=== PATIENT | male | born 1995 | race American Indian/Alaskan Native ===

== ENCOUNTER 2017-01-05 14:34 | Inpatient (IN) | payer MEDICAID ==
[2017-01-05 16:17] LABS: Basophils % (Auto) 0.3 % (0.0-1.8); Eosinophils % (Auto) 9.5 % (0.0-4.3); Hematocrit 41.8 % (35.5-45.6); Hemoglobin 14.1 gm/dl (11.8-15.2); Mean Corpuscular HGB Conc 34 % (32-34); Mean Corpuscular Hemoglobin 29 pg (28-32); Mean Corpuscular Volume 86 fl (84-94); Platelet Count 243 K/mm3 (140-440); Red Blood Count 4.88 M/mm3 (3.65-5.03); Red Cell Distribution Width 15.8 % (13.2-15.2); White Blood Count 9.5 K/mm3 (4.5-11.0)
[2017-01-05 16:25] LABS: Alanine Aminotransferase 75 units/L (7-56); Albumin 3.8 g/dL (3.9-5); Albumin/Globulin Ratio 1.2 %; Alkaline Phosphatase 80 units/L (35-129); Anion Gap 16 mmol/L; Blood Urea Nitrogen 5 mg/dL (9-20); Calcium 9.5 mg/dL (8.4-10.2); Carbon Dioxide 22 mmol/L (22-30); Chloride 105.9 mmol/L (98-107); Glucose 127 mg/dL (75-100); Potassium 4.1 mmol/L (3.6-5.0); Sodium 140 mmol/L (137-145)
--- NOTE | 2017-01-05 21:31 | XRay Report ---
FINAL REPORT EXAM: XR CHEST ROUTINE 2V HISTORY: ams ? pna TECHNIQUE: Two view chest PA and lateral PRIORS: None. FINDINGS: Cardiac and mediastinal contours are unremarkable. No focal pulmonary infiltrate is identified. No pleural fluid collection seen. Pulmonary vasculature is unremarkable. IMPRESSION: Negative two-view chest
--- NOTE | 2017-01-05 21:43 | Cat Scan Report ---
FINAL REPORT EXAM: CT HEAD/BRAIN WO CON HISTORY: ams TECHNIQUE: CT head without contrast PRIORS: None. FINDINGS: No acute intra-axial or extra-axial hemorrhage is identified. There is no evidence of midline shift or mass effect. The ventricles and sulci are within normal limits. Kat-white matter differentiation is intact. No acute parenchymal abnormalities seen. Bony calvarium is grossly intact. Visualized portions of the mastoids and paranasal sinuses are unremarkable. IMPRESSION: Negative CT head
--- NOTE | 2017-01-05 22:55 | Emergency Department Report ---
ED Psych HPI - General Chief Complaint: Altered Mental Status Stated Complaint: AMS Time Seen by Provider: 01/05/17 22:50 Source: family (caregivers) Mode of arrival: Wheelchair Limitations: Language Barrier (mute) - History of Present Illness MD Complaint: other (lethargy sedation) -: Gradual Associated Psychiatric Symptoms: other (mr kym montes) History of same: No Quality: changing over time, getting worse Improves With: none Worsens With: none - Related Data Home Medications Medication Instructions Recorded Confirmed Last Taken Unobtainable 01/05/17 01/05/17 Unknown Allergies Allergy/AdvReac Type Severity Reaction Status Date / Time No Known Allergies Allergy Unverified 01/05/17 15:26 ED Review of Systems ROS: Stated complaint: AMS Other details as noted in HPI Comment: All other systems reviewed and negative Constitutional: no symptoms reported Eyes: as per HPI ENT: as per HPI Respiratory: no symptoms reported Cardiovascular: as per HPI Endocrine: no symptoms reported Gastrointestinal: as per HPI Genitourinary: as per HPI Musculoskeletal: as per HPI Skin: as per HPI Neurological: as per HPI, other (lethargy). denies: headache, weakness, numbness, paresthesias, confusion, abnormal gait, vertigo Psychiatric: as per HPI, other (autism, mr, jyoti). denies: anxiety, depression , auditory hallucinations, visual hallucinations, homicidal thoughts Hematological/Lymphatic: as per HPI ED Past Medical Hx - Past Medical History Previous Medical History?: Yes Hx Hypertension: No Hx CVA: No Hx Heart Attack/AMI: No Hx Congestive Heart Failure: No Hx Diabetes: No Hx Deep Vein Thrombosis: No Hx Pulmonary Embolism: No Hx GERD: No Hx Liver Disease: No Hx Renal Disease: No Hx of Cancer: No Hx Sickle Cell Disease: No Hx Arthritis: No Hx Headaches / Migraines: No Hx Seizures: No Hx Kidney Stones: No Hx Psychiatric Treatment: Yes Hx Asthma: No Hx COPD: No Hx Tuberculosis: No Hx Dementia: No Hx HIV: No Additional medical history: mute. autistic. bipolar. behavioral distrubance. obese. lives in [facility]; mom and dad are alive - Surgical History Past Surgical History?: No Additional Surgical History: UNKNOWN - Social History Smoking Status: Never Smoker Substance Use Type: None - Medications Home Medications: Home Medications Medication Instructions Recorded Confirmed Last Taken Type Unobtainable 01/05/17 01/05/17 Unknown History ED Physical Exam - General Limitations: Altered Mental Status, Other General appearance: in no apparent distress, lethargic, obese, other (ambulates but if unstimulated will go to sleep) - Head Head exam: Present: atraumatic, other (no hx fall or trauma) - Eye Eye exam: Present: normal appearance, PERRL (4 b bilateral ) - ENT ENT exam: Present: normal exam, mucous membranes moist - Neck Neck exam: Present: normal inspection. Absent: tenderness, meningismus - Respiratory Respiratory exam: Present: normal lung sounds bilaterally (limted by body habitus). Absent: respiratory distress, wheezes, rales, rhonchi, stridor - Cardiovascular Cardiovascular Exam: Present: regular rate, normal rhythm. Absent: bradycardia , tachycardia, irregular rhythm - GI/Abdominal GI/Abdominal exam: Present: soft (obese) - Rectal Rectal exam: Present: deferred - Extremities Exam Extremities exam: Present: normal inspection, full ROM, tenderness - Back Exam Back exam: Present: normal inspection, full ROM. Absent: tenderness, CVA tenderness (R), CVA tenderness (L) - Neurological Exam Neurological exam: Present: alert, altered, CN II-XII intact, normal gait. Absent: reflexes normal (inc ) - Psychiatric Psychiatric exam: Present: flat affect, other (lethargic but will ambulate when stimulated). Absent: normal affect, normal mood, depressed, agitated, anxious, manic, homicidal ideation - Expanded Psychiatric Exam Expanded Focused psych exam: Present: psychomotor agitation (rigid as if prk appearing), mute, other (diff to assess given baseline pathology; wo meds pt is aggressive per [facility] staff). Absent: pressured speech, internal stimuli, echolalia, delusional, paranoid, catatonic, perseverating, euphoric, restlessness, flight of ideas, loose associations - Skin Skin exam: Present: warm, dry, intact, normal color. Absent: rash ED Course Vital Signs 01/05/17 01/05/17 15:18 23:50 Temperature 97.8 F Pulse Rate 79 62 Respiratory 18 16 Rate Blood Pressure 146/76 Blood Pressure 113/71 [Left] O2 Sat by Pulse 100 96 Oximetry - Reevaluation(s) Reevaluation #1: to er today w [facility] staff w ams they report he has been progressively more sedate he is on numerous psych meds bc of his behavioral issues [facility] staff reports he is normally aggressive and can be hard to manage see med list by [facility] staff- labs ordered additional labs obtained once med list was provided labs noted poison control phoned see note Reevaluation #2: 01/06/17 00:13 poison control li chronic- mild tox per poison control monitor for t wave ab, respiratory level, cogwheel reg., dre, monitor cr, monitor for dehydration repeat dep level to trend down- poison control not concerned about it repeat li level to trend down NS - which has been ordered repeat drug levels every 4 hours ammonia level admit telemetry Dr Lake notified ED Medical Decision Making - Lab Data Result diagrams: 01/05/17 15:36 01/05/17 15:36 - EKG Data -: EKG Interpreted by Mi EKG shows normal: sinus rhythm Rate: normal - EKG Data Interpretation: no acute changes - Radiology Data Radiology results: report reviewed - Medical Decision Making AMS ? etio tox of drugs denies illicit drug use no hx trauma vss ambulates but if unstimulated will go to sleep vss oxygenating well [place] [id number] Dr Lake aware of admit to [facility] per poison control - Differential Diagnosis ams drug tox v psych etiology Critical care attestation.: If time is entered above; I have spent that time in minutes in the direct care of this critically ill patient, excluding procedure time. ED Disposition Clinical Impression: [place] toxicity, Autism, Altered mental state, Mute, Bipolar 1 disorder Disposition: OP ADMIT IP TO THIS HOSP Is pt being admited?: Yes Does the pt Need Aspirin: No Condition: Stable Time of Disposition: 00:45
[2017-01-05 23:53] LABS: Lithium 1.3 mmol/L (0.0-1.2); Valproate 104.8 ug/mL (50-100)
[2017-01-06] MEDS ORDERED: NACL 0.9% 1000 ML 1,000 ML IV ONE (00:16)
[2017-01-06] MEDS ORDERED: ZOFRAN IV PRN (02:23)
--- NOTE | 2017-01-06 02:27 | History and Physical Report ---
History of Present Illness Date of examination: 01/06/17 History of present illness: 21-year-old man with a history of autism, bipolar was brought to the emergency room by caregiver because he is more sleepy than usual over the last 2 weeks. Patient is usually very aggressive, he is on several sedatives. It's unclear if any of his sedatives has been increased. Glendo level and Depakote level were elevated. . Review of system is unobtainable PAST SURGICAL HISTORY: Unknown SOCIAL HISTORY: Lives in correction, no tobacco, alcohol, drugs FAMILY HISTORY: Unknown Medications and Allergies Allergies Allergy/AdvReac Type Severity Reaction Status Date / Time No Known Allergies Allergy Unverified 01/05/17 15:26 Home Medications Medication Instructions Recorded Confirmed Last Taken Type Ativan 2 mg PO TID 01/06/17 01/06/17 Unknown History Benztropine 2 mg PO BID 01/06/17 01/06/17 Unknown History Depakote 500 mg PO TID 01/06/17 01/06/17 Unknown History Glendo 300 mg PO QID 01/06/17 01/06/17 Unknown History Propranolol 120 mg PO DAILY 01/06/17 01/06/17 Unknown History RisperiDONE 1 mg PO BID 01/06/17 01/06/17 Unknown History Triamcinolone 0.1% 1 applic TP BID 01/06/17 01/06/17 Unknown History traZODone 100 mg PO HS 01/06/17 01/06/17 Unknown History Active Meds: Active Medications Enoxaparin Sodium (Lovenox) 30 mg SUB-Q QDAY YINKA Sodium Chloride (Nacl 0.9% 1000 Ml) 1,000 mls @ 125 mls/hr IV ONCE ONE Stop: 01/06/17 08:15 Last Admin: 01/06/17 02:21 Dose: 125 mls/hr Sodium Chloride (Nacl 0.9% 1000 Ml) 1,000 mls @ 125 mls/hr IV DIRECT YINKA Ondansetron HCl (Zofran) 4 mg IV Q8H PRN PRN Reason: N/V unrelieved by Reglan Exam - Physical Exam Narrative exam: Gen. appearance: Patient lying in bed, no apparent distress HEENT: Normocephalic, atraumatic, pupils equally round and reactive to light, unable to doextraocular movement , and no sclericterus,. No JVD or thyromegaly or nodule,neck supple, no carotid bruit ,mucous membranes moist, no exudate or erythema Heart: S1, S2, regular rate and rhythm Lungs: Clear to auscultation bilaterally, breathing comfortable Abdomen: Positive bowel sounds, nontender, nondistended, no organomegaly Extremity: No edema, cyanosis, clubbing Skin: No rash, nodules, warm, dry Neuro: sedated - Constitutional Vitals: Temp Pulse Resp BP Pulse Ox 97.8 F 62 16 113/71 96 01/05/17 15:18 01/05/17 23:50 01/05/17 23:50 01/05/17 23:50 01/05/17 23:50 Results - Labs CBC & Chem 7: 01/05/17 15:36 01/05/17 15:36 Labs: Abnormal lab results 01/05/17 01/05/17 01/05/17 Range/Units 15:36 15:36 15:36 RDW 15.8 H (13.2-15.2) % Real % (Auto) 8.0 H (0.0-7.3) % Eos % (Auto) 9.5 H (0.0-4.3) % Eos # 0.9 H (0.0-0.4) K/mm3 BUN 5 L (9-20) mg/dL Glucose 127 H (75-100) mg/dL POC Glucose (70-105) Lactic Acid 2.30 H* (0.7-2.0) mmol/L AST 51 H (5-40) units/L ALT 75 H (7-56) units/L Albumin 3.8 L (3.9-5) g/dL TSH (0.270-4.200) mlU/mL Salicylates (2.8-20.0) mg/dL Valproic Acid (50-100) ug/mL Glendo (0.0-1.2) mmol/L 01/05/17 01/05/17 01/05/17 Range/Units 15:36 15:36 15:36 RDW (13.2-15.2) % Real % (Auto) (0.0-7.3) % Eos % (Auto) (0.0-4.3) % Eos # (0.0-0.4) K/mm3 BUN (9-20) mg/dL Glucose (75-100) mg/dL POC Glucose 106 H (70-105) Lactic Acid (0.7-2.0) mmol/L AST (5-40) units/L ALT (7-56) units/L Albumin (3.9-5) g/dL TSH 5.630 H (0.270-4.200) mlU/mL Salicylates < 0.3 L (2.8-20.0) mg/dL Valproic Acid (50-100) ug/mL Glendo (0.0-1.2) mmol/L 01/05/17 Range/Units 23:15 RDW (13.2-15.2) % Real % (Auto) (0.0-7.3) % Eos % (Auto) (0.0-4.3) % Eos # (0.0-0.4) K/mm3 BUN (9-20) mg/dL Glucose (75-100) mg/dL POC Glucose (70-105) Lactic Acid (0.7-2.0) mmol/L AST (5-40) units/L ALT (7-56) units/L Albumin (3.9-5) g/dL TSH (0.270-4.200) mlU/mL Salicylates (2.8-20.0) mg/dL Valproic Acid 104.8 H (50-100) ug/mL [place] 1.3 H (0.0-1.2) mmol/L - Imaging and Cardiology EKG: image reviewed Chest x-ray: report reviewed CT scan - chest: report reviewed Assessment and Plan Altered mental status most likely secondary to sedatives Elevated lithium and depakote levels Autism Bipolar Admit to medicine Start IV fluids, hold sedatives, lithium and depakote Start dvt prophalaxis
[2017-01-06 02:48] LABS: Urine Drugs of Abuse Note Disclamer
[2017-01-06 02:53] LABS: Lithium 1.4 mmol/L (0.0-1.2); Valproate 97.9 ug/mL (50-100)
[2017-01-06] MEDS ORDERED: NACL 0.9% 1000 ML 1,000 ML IV SCH (03:00)
[2017-01-06 03:12] LABS: Bilirubin,Urine NEG (Negative); Blood,Urine NEG (Negative); Ketones,Urine NEG (Negative); Leukocyte Esterase,Urine NEG (Negative); Nitrite,Urine NEG (Negative); Protein,Urine <15 mg/dL mg/dL (Negative); Urobilinogen,Urine < 2.0 mg/dL (<2.0); WBC,Urine < 1.0 /HPF (0.0-6.0)
--- NOTE | 2017-01-06 03:50 | Admit Criteria Form ---
Admission Criteria Documentation: MENTAL STATUS CHANGE Clinical Indications for Inpatient Care (Place 'X' for any and all applicable criteria): Ongoing inpatient care may be needed for 1 or more of the following(1)(2)(3)(5)( 6): [X ]I. Suspected serious etiology (eg, medical disorder, TRUST OPERATIONS ASSISTANT event) of altered mental status [ ]II. Danger to self or others not manageable at lower level of care [ ]III. Grave disability (eg, inability to perform self care necessary at lower level of care) [ ]IV. Agitation or inappropriate behavior interfering with care for primary condition (eg, attempting to discontinue lines or drains prematurely, unable to cooperate with respiratory care) [ ]V. Delirium [A] [D][E] as described by 1 or more of the following(26): [ ]a) Delirium due to alcohol or sedative [F] withdrawal [ ]b) Delirium of uncertain etiology that has not responded to appropriate empiric treatment [ ]c) Delirium that prevents performance of a life-sustaining function (eg, feeding or hydrating oneself) [ ]. General contraindications and/or Inappropriate clinical situations for Observational Care in patients with Mental Status Change, when ANY ONE of the following is required: [ ]a) Prediction of prolongation of LOS based on ANY ONE of the following may be considered as a contraindication for observational care 2, 3, 4, 5, 6, 7, 8, 9, 10, 11 [ ]i) Age > 65 yrs. [ ]ii) Patient arriving by ambulance [ ]iii) Patient with high acuity [ ]iv) Patient requiring vital sign monitoring [ ]v) Patient on IV medication [ ]b) Systolic blood pressures greater than or equal to 180mmHg 3, 12 [ ]c) Patient with altered mental status including delirium and other alteration of consciousness, (3) [ ]d) Patient whose discharge disposition will be to a jail home or rehabilitation home should not be managed in Emergency Department Observation Unit. CMS rule requires 3 days hospital stay before such placement.3,13 [ ]e) Patient with failure to thrive due to broad array of etiologies 3,16,17 [ ]f) Inability to ambulate 3,14 Extended stay beyond goal length of stay for the primary condition may be needed until ALL of the following are present(3)(5): [ ]a) Underlying medical etiology of mental status change is absent, or has been established and adequately treated [ ]b) Danger to self or others is absent or manageable at lower level of care. [ ]c) Behavior crisis management, including physical or chemical restraints, is not required or available at lower level of car [ ]d) Substance or alcohol withdrawal is absent or manageable at lower level of care. [ ]e) Behavioral symptoms (eg, agitation, somnolence, inappropriate behavior) are absent, or are manageable at lower level of care. The original [facility] [employer] content created by [facility] [employer] has been revised. The portions of the content which have been revised are identified through the use of italic text or in bold, and [facility] has neither reviewed nor approved the modified material. All other unmodified content is copyright [facility] [employer]. Please see references footnoted in the original [facility] edition 2016 Admission Criteria Met: Yes
--- NOTE | 2017-01-06 10:34 | Progress Note ---
Assessment and Plan Assessment and plan: Altered mental status most likely secondary to sedatives. Continue to monitor off medication. Mental health evaluation for medication adjustments. Elevated lithium and depakote levels. Recheck levels. Autism. Supportive care. Bipolar. Continue medications. History Interval history: No new issues overnight. Family at bedside. Hospitalist Physical - Constitutional Vitals: Temp Pulse Resp BP Pulse Ox 97.9 F 50 L 18 112/76 99 01/06/17 04:00 01/06/17 05:00 01/06/17 04:00 01/06/17 04:00 01/06/17 09:21 General appearance: Present: no acute distress, well-nourished - EENT Eyes: Present: PERRL, EOM intact ENT: hearing intact, clear oral mucosa, dentition normal - Neck Neck: Present: supple, normal ROM - Respiratory Respiratory effort: normal Respiratory: bilateral: CTA - Cardiovascular Rhythm: regular Heart Sounds: Present: S1 & S2. Absent: gallop, rub - Extremities Extremities: no ischemia, No edema, Full ROM - Abdominal General gastrointestinal: soft, non-tender, non-distended, normal bowel sounds - Integumentary Integumentary: Present: clear, warm, dry - Neurologic Neurologic: CNII-XII intact, moves all extremities Results - Labs CBC & Chem 7: 01/05/17 15:36 01/05/17 15:36 Labs: Laboratory Last Values WBC 9.5 K/mm3 (4.5-11.0) 01/05/17 15:36 RBC 4.88 M/mm3 (3.65-5.03) 01/05/17 15:36 Hgb 14.1 gm/dl (11.8-15.2) 01/05/17 15:36 Hct 41.8 % (35.5-45.6) 01/05/17 15:36 MCV 86 fl (84-94) 01/05/17 15:36 MCH 29 pg (28-32) 01/05/17 15:36 MCHC 34 % (32-34) 01/05/17 15:36 RDW 15.8 % (13.2-15.2) H 01/05/17 15:36 Plt Count 243 K/mm3 (140-440) 01/05/17 15:36 Lymph % (Auto) 31.8 % (13.4-35.0) 01/05/17 15:36 [place] % (Auto) 8.0 % (0.0-7.3) H 01/05/17 15:36 Eos % (Auto) 9.5 % (0.0-4.3) H 01/05/17 15:36 Baso % (Auto) 0.3 % (0.0-1.8) 01/05/17 15:36 Lymph # 3.0 K/mm3 (1.2-5.4) 01/05/17 15:36 [place] # 0.8 K/mm3 (0.0-0.8) 01/05/17 15:36 Eos # 0.9 K/mm3 (0.0-0.4) H 01/05/17 15:36 Baso # 0.0 K/mm3 (0.0-0.1) 01/05/17 15:36 Seg Neutrophils % 50.4 % (40.0-70.0) 01/05/17 15:36 Seg Neutrophils # 4.8 K/mm3 (1.8-7.7) 01/05/17 15:36 Sodium 140 mmol/L (137-145) 01/05/17 15:36 Potassium 4.1 mmol/L (3.6-5.0) 01/05/17 15:36 Chloride 105.9 mmol/L (98-107) 01/05/17 15:36 Carbon Dioxide 22 mmol/L (22-30) 01/05/17 15:36 Anion Gap 16 mmol/L 01/05/17 15:36 BUN 5 mg/dL (9-20) L 01/05/17 15:36 Creatinine 1.0 mg/dL (0.8-1.5) 01/05/17 15:36 Estimated GFR > 60 ml/min 01/05/17 15:36 BUN/Creatinine Ratio 5.00 % 01/05/17 15:36 Glucose 127 mg/dL (75-100) H 01/05/17 15:36 POC Glucose 106 (70-105) H 01/05/17 15:36 Lactic Acid 1.20 mmol/L (0.7-2.0) 01/05/17 17:57 Calcium 9.5 mg/dL (8.4-10.2) 01/05/17 15:36 Magnesium 2.00 mg/dL (1.7-2.3) 01/05/17 15:36 Total Bilirubin 0.40 mg/dL (0.1-1.2) 01/05/17 15:36 AST 51 units/L (5-40) H 01/05/17 15:36 ALT 75 units/L (7-56) H 01/05/17 15:36 Alkaline Phosphatase 80 units/L (35-129) 01/05/17 15:36 Ammonia 68.0 umol/L (25-60) H 01/06/17 02:09 Total Protein 7.0 g/dL (6.3-8.2) 01/05/17 15:36 Albumin 3.8 g/dL (3.9-5) L 01/05/17 15:36 Albumin/Globulin Ratio 1.2 % 01/05/17 15:36 TSH 5.630 mlU/mL (0.270-4.200) H 01/05/17 15:36 Thyroxine (T4) 5.0 ug/dL (4.0-12.0) 01/05/17 23:15 Urine Color Straw (Yellow) 01/05/17 15:27 Urine Turbidity Clear (Clear) 01/05/17 15:27 Urine pH 7.0 (5.0-7.0) 01/05/17 15:27 Ur Specific [place] 1.003 (1.003-1.030) 01/05/17 15:27 Urine Protein <15 mg/dl mg/dL (Negative) 01/05/17 15:27 Urine Glucose (UA) Neg mg/dL (Negative) 01/05/17 15:27 Urine Ketones Neg mg/dL (Negative) 01/05/17 15:27 Urine Blood Neg (Negative) 01/05/17 15:27 Urine Nitrite Neg (Negative) 01/05/17 15:27 Urine Bilirubin Neg (Negative) 01/05/17 15:27 Urine Urobilinogen < 2.0 mg/dL (<2.0) 01/05/17 15:27 Ur Leukocyte Esterase Neg (Negative) 01/05/17 15:27 Urine WBC (Auto) < 1.0 /HPF (0.0-6.0) 01/05/17 15:27 Urine RBC (Auto) 2.0 /HPF (0.0-6.0) 01/05/17 15:27 U Epithel Cells (Auto) < 1.0 /HPF (0-13.0) 01/05/17 15:27 Amorphous Crystals Few 01/05/17 15:27 Salicylates < 0.3 mg/dL (2.8-20.0) L 01/05/17 15:36 Urine Opiates Screen Presumptive negative 01/05/17 15:27 Urine Methadone Screen Presumptive negative 01/05/17 15:27 Acetaminophen < 15.0 ug/mL (10.0-30.0) 01/05/17 15:36 Ur Barbiturates Screen Presumptive negative 01/05/17 15:27 Valproic Acid 97.9 ug/mL (50-100) 01/06/17 02:09 Ur Phencyclidine Scrn Presumptive negative 01/05/17 15:27 Ur Amphetamines Screen Presumptive negative 01/05/17 15:27 U Benzodiazepines Scrn Presumptive negative 01/05/17 15:27 [place] 1.4 mmol/L (0.0-1.2) H 01/06/17 02:09 Urine Cocaine Screen Presumptive negative 01/05/17 15:27 U Marijuana (THC) Screen Presumptive negative 01/05/17 15:27 Drugs of Abuse Note Disclamer 01/05/17 15:27 Plasma/Serum Alcohol < 0.01 gm% (0-0.07) 01/05/17 15:36
[2017-01-06] MEDS: LOVENOX SUB-Q SCH (10:55)
[2017-01-06 12:17] LABS: Lithium 1.2 mmol/L (0.0-1.2)
[2017-01-07 06:18] LABS: Basophils % (Auto) 0.4 % (0.0-1.8); Eosinophils % (Auto) 6.5 % (0.0-4.3); Hemoglobin 13.7 gm/dl (11.8-15.2); Mean Corpuscular HGB Conc 34 % (32-34); Mean Corpuscular Hemoglobin 29 pg (28-32); Mean Corpuscular Volume 86 fl (84-94); Platelet Count 215 K/mm3 (140-440); Red Blood Count 4.67 M/mm3 (3.65-5.03); Red Cell Distribution Width 15.8 % (13.2-15.2); White Blood Count 10.1 K/mm3 (4.5-11.0)
[2017-01-07 06:25] LABS: Anion Gap 17 mmol/L; BUN/Creatinine Ratio 5.55; Blood Urea Nitrogen 5 mg/dL (9-20); Calcium 9.7 mg/dL (8.4-10.2); Carbon Dioxide 23 mmol/L (22-30); Chloride 109.6 mmol/L (98-107); Glucose 78 mg/dL (75-100); Potassium 4.8 mmol/L (3.6-5.0); Sodium 145 mmol/L (137-145)
[2017-01-07] MEDS: LOVENOX SUB-Q SCH (10:07)
[2017-01-07] MEDS: HALDOL IM PRN ×2 (12:19→22:11)
--- NOTE | 2017-01-07 12:43 | Progress Note ---
Assessment and Plan Assessment and plan: Acute encephalopathy. Etiology most likely secondary to sedatives. However, ammonia level also elevated. Recheck ammonia level and if still elevated, we will start lactulose. Continue to monitor off medication. Await Mental health evaluation for medication adjustments. Elevated lithium and depakote levels. Recheck levels. Autism. Supportive care. Bipolar. Continue medications. History Interval history: No new issues overnight. Patient somnolent but arousable. Hospitalist Physical - Constitutional Vitals: Temp Pulse Resp BP Pulse Ox 98.8 F 90 18 162/81 97 01/07/17 08:48 01/07/17 08:48 01/07/17 08:48 01/07/17 08:48 01/07/17 08:48 General appearance: Present: no acute distress, well-nourished - EENT Eyes: Present: PERRL, EOM intact ENT: hearing intact, clear oral mucosa, dentition normal - Neck Neck: Present: supple, normal ROM - Respiratory Respiratory effort: normal Respiratory: bilateral: CTA - Cardiovascular Rhythm: regular Heart Sounds: Present: S1 & S2. Absent: gallop, rub - Extremities Extremities: no ischemia, No edema, Full ROM - Abdominal General gastrointestinal: soft, non-tender, non-distended, normal bowel sounds - Integumentary Integumentary: Present: clear, warm, dry - Neurologic Neurologic: CNII-XII intact, moves all extremities Results - Labs CBC & Chem 7: 01/07/17 05:00 01/07/17 05:00 Labs: Laboratory Last Values WBC 10.1 K/mm3 (4.5-11.0) 01/07/17 05:00 RBC 4.67 M/mm3 (3.65-5.03) 01/07/17 05:00 Hgb 13.7 gm/dl (11.8-15.2) 01/07/17 05:00 Hct 40.0 % (35.5-45.6) 01/07/17 05:00 MCV 86 fl (84-94) 01/07/17 05:00 MCH 29 pg (28-32) 01/07/17 05:00 MCHC 34 % (32-34) 01/07/17 05:00 RDW 15.8 % (13.2-15.2) H 01/07/17 05:00 Plt Count 215 K/mm3 (140-440) 01/07/17 05:00 Lymph % (Auto) 35.6 % (13.4-35.0) H 01/07/17 05:00 [place] % (Auto) 9.9 % (0.0-7.3) H 01/07/17 05:00 Eos % (Auto) 6.5 % (0.0-4.3) H 01/07/17 05:00 Baso % (Auto) 0.4 % (0.0-1.8) 01/07/17 05:00 Lymph # 3.6 K/mm3 (1.2-5.4) 01/07/17 05:00 [place] # 1.0 K/mm3 (0.0-0.8) H 01/07/17 05:00 Eos # 0.7 K/mm3 (0.0-0.4) H 01/07/17 05:00 Baso # 0.0 K/mm3 (0.0-0.1) 01/07/17 05:00 Seg Neutrophils % 47.6 % (40.0-70.0) 01/07/17 05:00 Seg Neutrophils # 4.8 K/mm3 (1.8-7.7) 01/07/17 05:00 Sodium 145 mmol/L (137-145) 01/07/17 05:00 Potassium 4.8 mmol/L (3.6-5.0) 01/07/17 05:00 Chloride 109.6 mmol/L (98-107) H 01/07/17 05:00 Carbon Dioxide 23 mmol/L (22-30) 01/07/17 05:00 Anion Gap 17 mmol/L 01/07/17 05:00 BUN 5 mg/dL (9-20) L 01/07/17 05:00 Creatinine 0.9 mg/dL (0.8-1.5) 01/07/17 05:00 Estimated GFR > 60 ml/min 01/07/17 05:00 BUN/Creatinine Ratio 5.55 % 01/07/17 05:00 Glucose 78 mg/dL (75-100) 01/07/17 05:00 POC Glucose 106 (70-105) H 01/05/17 15:36 Lactic Acid 1.20 mmol/L (0.7-2.0) 01/05/17 17:57 Calcium 9.7 mg/dL (8.4-10.2) 01/07/17 05:00 Magnesium 2.00 mg/dL (1.7-2.3) 01/05/17 15:36 Total Bilirubin 0.40 mg/dL (0.1-1.2) 01/05/17 15:36 AST 51 units/L (5-40) H 01/05/17 15:36 ALT 75 units/L (7-56) H 01/05/17 15:36 Alkaline Phosphatase 80 units/L (35-129) 01/05/17 15:36 Ammonia 68.0 umol/L (25-60) H 01/06/17 02:09 Total Protein 7.0 g/dL (6.3-8.2) 01/05/17 15:36 Albumin 3.8 g/dL (3.9-5) L 01/05/17 15:36 Albumin/Globulin Ratio 1.2 % 01/05/17 15:36 TSH 4.840 mlU/mL (0.270-4.200) H 01/06/17 11:24 Thyroxine (T4) 5.0 ug/dL (4.0-12.0) 01/05/17 23:15 Urine Color Straw (Yellow) 01/05/17 15:27 Urine Turbidity Clear (Clear) 01/05/17 15:27 Urine pH 7.0 (5.0-7.0) 01/05/17 15:27 Ur Specific [place] 1.003 (1.003-1.030) 01/05/17 15:27 Urine Protein <15 mg/dl mg/dL (Negative) 01/05/17 15:27 Urine Glucose (UA) Neg mg/dL (Negative) 01/05/17 15:27 Urine Ketones Neg mg/dL (Negative) 01/05/17 15:27 Urine Blood Neg (Negative) 01/05/17 15:27 Urine Nitrite Neg (Negative) 01/05/17 15:27 Urine Bilirubin Neg (Negative) 01/05/17 15:27 Urine Urobilinogen < 2.0 mg/dL (<2.0) 01/05/17 15:27 Ur Leukocyte Esterase Neg (Negative) 01/05/17 15:27 Urine WBC (Auto) < 1.0 /HPF (0.0-6.0) 01/05/17 15:27 Urine RBC (Auto) 2.0 /HPF (0.0-6.0) 01/05/17 15:27 U Epithel Cells (Auto) < 1.0 /HPF (0-13.0) 01/05/17 15:27 Amorphous Crystals Few 01/05/17 15:27 Salicylates < 0.3 mg/dL (2.8-20.0) L 01/05/17 15:36 Urine Opiates Screen Presumptive negative 01/05/17 15:27 Urine Methadone Screen Presumptive negative 01/05/17 15:27 Acetaminophen < 15.0 ug/mL (10.0-30.0) 01/05/17 15:36 Ur Barbiturates Screen Presumptive negative 01/05/17 15:27 Valproic Acid 91.0 ug/mL (50-100) 01/06/17 11:24 Ur Phencyclidine Scrn Presumptive negative 01/05/17 15:27 Ur Amphetamines Screen Presumptive negative 01/05/17 15:27 U Benzodiazepines Scrn Presumptive negative 01/05/17 15:27 [place] 1.2 mmol/L (0.0-1.2) 01/06/17 11:24 Urine Cocaine Screen Presumptive negative 01/05/17 15:27 U Marijuana (THC) Screen Presumptive negative 01/05/17 15:27 Drugs of Abuse Note Disclamer 01/05/17 15:27 Plasma/Serum Alcohol < 0.01 gm% (0-0.07) 01/05/17 15:36
[2017-01-08 07:11] LABS: Basophils % (Auto) 0.4 % (0.0-1.8); Eosinophils % (Auto) 3.4 % (0.0-4.3); Hematocrit 38.3 % (35.5-45.6); Hemoglobin 13.2 gm/dl (11.8-15.2); Mean Corpuscular HGB Conc 34 % (32-34); Mean Corpuscular Hemoglobin 29 pg (28-32); Mean Corpuscular Volume 85 fl (84-94); Platelet Count 209 K/mm3 (140-440); Red Blood Count 4.52 M/mm3 (3.65-5.03); Red Cell Distribution Width 15.7 % (13.2-15.2); White Blood Count 8.9 K/mm3 (4.5-11.0)
[2017-01-08 07:35] LABS: Anion Gap 16 mmol/L; Blood Urea Nitrogen 8 mg/dL (9-20); Calcium 9.6 mg/dL (8.4-10.2); Carbon Dioxide 24 mmol/L (22-30); Glucose 88 mg/dL (75-100); Potassium 3.9 mmol/L (3.6-5.0); Sodium 146 mmol/L (137-145)
--- NOTE | 2017-01-08 12:01 | Consultation ---
History of Present Illness - Reason for Consult Reason for consult: reported lithium toxicity Medications and Allergies Allergies Allergy/AdvReac Type Severity Reaction Status Date / Time No Known Allergies Allergy Unverified 01/05/17 15:26 Home Medications Medication Instructions Recorded Confirmed Last Taken Type Ativan 2 mg PO TID 01/06/17 01/06/17 Unknown History Benztropine 2 mg PO BID 01/06/17 01/06/17 Unknown History Depakote 500 mg PO TID 01/06/17 01/06/17 Unknown History [place] 300 mg PO QID 01/06/17 01/06/17 Unknown History Propranolol 120 mg PO DAILY 01/06/17 01/06/17 Unknown History RisperiDONE 1 mg PO BID 01/06/17 01/06/17 Unknown History Triamcinolone 0.1% 1 applic TP BID 01/06/17 01/06/17 Unknown History traZODone 100 mg PO HS 01/06/17 01/06/17 Unknown History Active Meds: Active Medications Enoxaparin Sodium (Lovenox) 40 mg SUB-Q QDAY YINKA Last Admin: 01/07/17 10:07 Dose: 40 mg Haloperidol Lactate (Haldol) 2 mg IM Q4H PRN PRN Reason: Agitation Last Admin: 01/07/17 22:11 Dose: 2 mg Ondansetron HCl (Zofran) 4 mg IV Q8H PRN PRN Reason: N/V unrelieved by [facility] Mental Status Exam - Vital signs Last Vital Signs Temp 99.1 F 01/08/17 07:25 Pulse 68 01/08/17 09:00 Resp 16 01/08/17 10:00 BP 137/71 01/08/17 07:25 Pulse Ox 97 01/08/17 07:25 Results Result Diagrams: 01/08/17 06:17 01/08/17 06:17 Abnormal lab results 01/07/17 01/08/17 01/08/17 Range/Units 15:04 06:17 06:17 RDW 15.7 H (13.2-15.2) % [place] % (Auto) 10.8 H (0.0-7.3) % [place] # 1.0 H (0.0-0.8) K/mm3 Sodium 146 H (137-145) mmol/L Chloride 110.0 H (98-107) mmol/L BUN 8 L (9-20) mg/dL Ammonia 66.0 H (25-60) umol/L All other labs normal. Assessment and Plan Assessment and plan: CHIEF COMPLAINT IN PATIENTS WORDS: HISTORY OF PRESENT ILLNESS REQUIRING ADMISSION TO INPATIENT LEVEL OF CARE: (Describe the onset of Illness, Intensity of Symptoms, and Circumstances Leading to Admission) This is a 21 year-old domiciled male has psychiatric history of autism and bipolar disorder now admitted for lithium toxicity. [place] and Depakote were held due to elevated levels. [place] level on admission was 1.3 and on recheck was 1.4. Depakote level was 104. Both lithium and Depakote levels were trending down throughout the hospital stay due to supportive care and discontinuation of the medication. On clinical examination today, patient is mostly nonverbal and mute and cannot provide any information. PSYCHIATRIC REVIEW OF SYSTEMS: Substance: unable to assess. Depression: unable to assess. [place]: unable to assess. Psychosis: unable to assess. Anxiety/ OCD/ PTSD:unable to assess. Suicidality: unable to assess. Other Self-Injurious Behavior: unable to assess. Violent/ Aggressive Behavior: unable to assess. CURRENT MEDICATIONS: ( Psychiatric and Non-psychiatric ) per medication reconciliation ALLERGIES: NKDA PAST PSYCHIATRIC HISTORY: ( Prior Treatment, Precipitating Factors, Diagnosis, and Course of Treatment ) unable to assess. PAST PSYCHIATRIC MEDICATION TRIALS: unable to assess. MEDICAL HISTORY: (Chronic and Acute Illnesses, Current Medical Treatment, Recent Hospitalizations) unable to assess. Detoxification / Withdrawal: none noted MENTAL STATUS EXAM: General Appearance: In hospital gown in acute distress, obese Sensorium/Consciousness: alert and responding to external stimuli Eye Contact: Fair Attitude / Behavior: cooperative, not agitated Psychomotor & Musculoskeletal Activity: WNL Mood: Could not report Affect: Appears euthymic Speech / Language: Nonverbal Thought Processes: Unable to assess Thought Content: unable to assess. Perception:unable to assess. Orientation: person Judgment What would you do if you smelled smoke in a crowded movie theater?: limited Insight: limited Intelligence Vocabulary, general fund of knowledge, educational level: limited Capacity of ADLs: Somewhat dependent STRENGTHS: PSYCHOSOCIAL AND ENVIRONMENTAL STRESSORS: ADMITTING DIAGNOSES Psychiatric: Autism Bipolar disorder Evidence for the following: Medical: INITIAL PLAN OF CARE AND TREATMENT GOALS: Obtain detailed history of previous medications use such as Depakote and lithium for the treatment of bipolar disorder Once dosing information is obtained or confirmed with his jail, a rechallenge of his mood stabilizers can be conducted
--- NOTE | 2017-01-08 12:05 | Progress Note ---
Assessment and Plan Assessment and plan: Acute encephalopathy. Etiology most likely secondary to sedatives. However, ammonia level also elevated. Recheck ammonia level and if still elevated, we will start lactulose. Continue to monitor off medication. Psychiatry feels that Once dosing information is obtained or confirmed with his nursing home, a rechallenge of his mood stabilizers can be conducted. Elevated lithium and depakote levels. Recheck levels. Autism. Supportive care. Bipolar. Continue medications per psychiatry. History Interval history: No new issues overnight. Patient somnolent but arousable. Hospitalist Physical - Constitutional Vitals: Temp Pulse Resp BP Pulse Ox 99.1 F 68 16 137/71 97 01/08/17 07:25 01/08/17 09:00 01/08/17 10:00 01/08/17 07:25 01/08/17 07:25 General appearance: Present: no acute distress, well-nourished - EENT Eyes: Present: PERRL, EOM intact ENT: hearing intact, clear oral mucosa, dentition normal - Neck Neck: Present: supple, normal ROM - Respiratory Respiratory effort: normal Respiratory: bilateral: CTA - Cardiovascular Rhythm: regular Heart Sounds: Present: S1 & S2. Absent: gallop, rub - Extremities Extremities: no ischemia, No edema, Full ROM - Abdominal General gastrointestinal: soft, non-tender, non-distended, normal bowel sounds - Integumentary Integumentary: Present: clear, warm, dry - Neurologic Neurologic: CNII-XII intact, moves all extremities Results - Labs CBC & Chem 7: 01/08/17 06:17 01/08/17 06:17 Labs: Laboratory Last Values WBC 8.9 K/mm3 (4.5-11.0) 01/08/17 06:17 RBC 4.52 M/mm3 (3.65-5.03) 01/08/17 06:17 Hgb 13.2 gm/dl (11.8-15.2) 01/08/17 06: Hct 38.3 % (35.5-45.6) 01/08/17 06:17 MCV 85 fl (84-94) 01/08/17 06:17 MCH 29 pg (28-32) 01/08/17 06: MCHC 34 % (32-34) 01/08/17 06: RDW 15.7 % (13.2-15.2) H 01/08/17 06:17 Plt Count 209 K/mm3 (140-440) 01/08/17 06:17 Lymph % (Auto) 30.1 % (13.4-35.0) 01/08/17 06:17 [place] % (Auto) 10.8 % (0.0-7.3) H 01/08/17 06:17 Eos % (Auto) 3.4 % (0.0-4.3) 01/08/17 06:17 Baso % (Auto) 0.4 % (0.0-1.8) 01/08/17 06:17 Lymph # 2.7 K/mm3 (1.2-5.4) 01/08/17 06:17 [place] # 1.0 K/mm3 (0.0-0.8) H 01/08/17 06:17 Eos # 0.3 K/mm3 (0.0-0.4) 01/08/17 06:17 Baso # 0.0 K/mm3 (0.0-0.1) 01/08/17 06:17 Seg Neutrophils % 55.3 % (40.0-70.0) 01/08/17 06:17 Seg Neutrophils # 5.0 K/mm3 (1.8-7.7) 01/08/17 06:17 Sodium 146 mmol/L (137-145) H 01/08/17 06:17 Potassium 3.9 mmol/L (3.6-5.0) 01/08/17 06:17 Chloride 110.0 mmol/L (98-107) H 01/08/17 06:17 Carbon Dioxide 24 mmol/L (22-30) 01/08/17 06:17 Anion Gap 16 mmol/L 01/08/17 06:17 BUN 8 mg/dL (9-20) L 01/08/17 06:17 Creatinine 1.0 mg/dL (0.8-1.5) 01/08/17 06:17 Estimated GFR > 60 ml/min 01/08/17 06:17 BUN/Creatinine Ratio 8.00 % 01/08/17 06:17 Glucose 88 mg/dL (75-100) 01/08/17 06:17 POC Glucose 106 (70-105) H 01/05/17 15:36 Lactic Acid 1.20 mmol/L (0.7-2.0) 01/05/17 17:57 Calcium 9.6 mg/dL (8.4-10.2) 01/08/17 06:17 Magnesium 2.00 mg/dL (1.7-2.3) 01/05/17 15:36 Total Bilirubin 0.40 mg/dL (0.1-1.2) 01/05/17 15:36 AST 51 units/L (5-40) H 01/05/17 15:36 ALT 75 units/L (7-56) H 01/05/17 15:36 Alkaline Phosphatase 80 units/L (35-129) 01/05/17 15:36 Ammonia 66.0 umol/L (25-60) H 01/07/17 15:04 Total Protein 7.0 g/dL (6.3-8.2) 01/05/17 15:36 Albumin 3.8 g/dL (3.9-5) L 01/05/17 15:36 Albumin/Globulin Ratio 1.2 % 01/05/17 15:36 TSH 4.840 mlU/mL (0.270-4.200) H 01/06/17 11:24 Thyroxine (T4) 5.0 ug/dL (4.0-12.0) 01/05/17 23:15 Urine Color Straw (Yellow) 01/05/17 15:27 Urine Turbidity Clear (Clear) 01/05/17 15:27 Urine pH 7.0 (5.0-7.0) 01/05/17 15:27 Ur Specific [place] 1.003 (1.003-1.030) 01/05/17 15:27 Urine Protein <15 mg/dl mg/dL (Negative) 01/05/17 15:27 Urine Glucose (UA) Neg mg/dL (Negative) 01/05/17 15:27 Urine Ketones Neg mg/dL (Negative) 01/05/17 15:27 Urine Blood Neg (Negative) 01/05/17 15:27 Urine Nitrite Neg (Negative) 01/05/17 15:27 Urine Bilirubin Neg (Negative) 01/05/17 15:27 Urine Urobilinogen < 2.0 mg/dL (<2.0) 01/05/17 15:27 Ur Leukocyte Esterase Neg (Negative) 01/05/17 15:27 Urine WBC (Auto) < 1.0 /HPF (0.0-6.0) 01/05/17 15:27 Urine RBC (Auto) 2.0 /HPF (0.0-6.0) 01/05/17 15:27 U Epithel Cells (Auto) < 1.0 /HPF (0-13.0) 01/05/17 15:27 Amorphous Crystals Few 01/05/17 15:27 Salicylates < 0.3 mg/dL (2.8-20.0) L 01/05/17 15:36 Urine Opiates Screen Presumptive negative 01/05/17 15:27 Urine Methadone Screen Presumptive negative 01/05/17 15:27 Acetaminophen < 15.0 ug/mL (10.0-30.0) 01/05/17 15:36 Ur Barbiturates Screen Presumptive negative 01/05/17 15:27 Valproic Acid 91.0 ug/mL (50-100) 01/06/17 11:24 Ur Phencyclidine Scrn Presumptive negative 01/05/17 15:27 Ur Amphetamines Screen Presumptive negative 01/05/17 15:27 U Benzodiazepines Scrn Presumptive negative 01/05/17 15:27 [place] 1.2 mmol/L (0.0-1.2) 01/06/17 11:24 Urine Cocaine Screen Presumptive negative 01/05/17 15:27 U Marijuana (THC) Screen Presumptive negative 01/05/17 15:27 Drugs of Abuse Note Disclamer 01/05/17 15:27 Plasma/Serum Alcohol < 0.01 gm% (0-0.07) 01/05/17 15:36
[2017-01-08] MEDS: HALDOL IM PRN (13:51)
[2017-01-08] MEDS: ATIVAN IV PRN (13:52)
[2017-01-09 10:01] LABS: Eosinophils % (Auto) 1.6 % (0.0-4.3)
[2017-01-09] MEDS: ATIVAN IV PRN (10:02)
[2017-01-09 10:03] LABS: Basophils % (Auto) 0.5 % (0.0-1.8); Hematocrit 41.3 % (35.5-45.6); Hemoglobin 13.9 gm/dl (11.8-15.2); Mean Corpuscular HGB Conc 34 % (32-34); Mean Corpuscular Hemoglobin 29 pg (28-32); Mean Corpuscular Volume 86 fl (84-94); Platelet Count 200 K/mm3 (140-440); Red Cell Distribution Width 15.9 % (13.2-15.2); White Blood Count 8.1 K/mm3 (4.5-11.0)
[2017-01-09] MEDS: LOVENOX SUB-Q SCH ×4 (10:04→20:24)
[2017-01-09 10:32] LABS: Anion Gap 23 mmol/L; Blood Urea Nitrogen 11 mg/dL (9-20); Carbon Dioxide 19 mmol/L (22-30); Chloride 105.6 mmol/L (98-107); Glucose 131 mg/dL (75-100); Potassium 4.5 mmol/L (3.6-5.0); Sodium 143 mmol/L (137-145)
--- NOTE | 2017-01-09 10:59 | Progress Note ---
Assessment and Plan Assessment and plan: Seizure disorder. Unsure patient has a history of seizures. We will attempt to obtain old records. Start Keppra 500 mg twice a day. Check EEG. Consult neurology. Seizure precautions. Acute encephalopathy. Etiology most likely secondary to sedatives. However, ammonia level also elevated. Recheck ammonia level and if still elevated, we will start lactulose. Continue to monitor off medication. Psychiatry feels that Once dosing information is obtained or confirmed with his [facility], a rechallenge of his mood stabilizers can be conducted. Elevated lithium and depakote levels. Recheck levels. Autism. Supportive care. Bipolar. Continue medications per psychiatry. History Interval history: Nursing reports a generalized tonic-clonic seizure this morning lasting approximately 3 minutes. Hospitalist Physical - Constitutional Vitals: Temp Pulse Resp BP Pulse Ox 98.5 F 92 H 20 125/66 97 01/09/17 08:14 01/09/17 08:14 01/09/17 08:14 01/09/17 08:14 01/09/17 08:14 General appearance: Present: no acute distress, obese - EENT Eyes: Present: PERRL, EOM intact ENT: hearing intact, clear oral mucosa, dentition normal - Neck Neck: Present: supple, normal ROM - Respiratory Respiratory effort: normal Respiratory: bilateral: CTA - Cardiovascular Rhythm: regular Heart Sounds: Present: S1 & S2. Absent: gallop, rub - Extremities Extremities: no ischemia, No edema, Full ROM - Abdominal General gastrointestinal: soft, non-tender, non-distended, normal bowel sounds - Integumentary Integumentary: Present: clear, warm, dry - Neurologic Neurologic: CNII-XII intact, moves all extremities Results - Labs CBC & Chem 7: 01/09/17 09:30 01/09/17 09:30 Labs: Laboratory Last Values WBC 8.1 K/mm3 (4.5-11.0) 01/09/17 09:30 RBC 4.80 M/mm3 (3.65-5.03) 01/09/17 09:30 Hgb 13.9 gm/dl (11.8-15.2) 01/09/17 09:30 Hct 41.3 % (35.5-45.6) 01/09/17 09:30 MCV 86 fl (84-94) 01/09/17 09:30 MCH 29 pg (28-32) 01/09/17 09:30 MCHC 34 % (32-34) 01/09/17 09:30 RDW 15.9 % (13.2-15.2) H 01/09/17 09:30 Plt Count 200 K/mm3 (140-440) 01/09/17 09:30 Lymph % (Auto) 26.4 % (13.4-35.0) 01/09/17 09:30 [place] % (Auto) 8.6 % (0.0-7.3) H 01/09/17 09:30 Eos % (Auto) 1.6 % (0.0-4.3) 01/09/17 09:30 Baso % (Auto) 0.5 % (0.0-1.8) 01/09/17 09:30 Lymph # 2.1 K/mm3 (1.2-5.4) 01/09/17 09:30 [place] # 0.7 K/mm3 (0.0-0.8) 01/09/17 09:30 Eos # 0.1 K/mm3 (0.0-0.4) 01/09/17 09:30 Baso # 0.0 K/mm3 (0.0-0.1) 01/09/17 09:30 Seg Neutrophils % 62.9 % (40.0-70.0) 01/09/17 09:30 Seg Neutrophils # 5.1 K/mm3 (1.8-7.7) 01/09/17 09:30 Sodium 143 mmol/L (137-145) 01/09/17 09:30 Potassium 4.5 mmol/L (3.6-5.0) 01/09/17 09:30 Chloride 105.6 mmol/L (98-107) 01/09/17 09:30 Carbon Dioxide 19 mmol/L (22-30) L 01/09/17 09:30 Anion Gap 23 mmol/L 01/09/17 09:30 BUN 11 mg/dL (9-20) 01/09/17 09:30 Creatinine 1.1 mg/dL (0.8-1.5) 01/09/17 09:30 Estimated GFR > 60 ml/min 01/09/17 09:30 BUN/Creatinine Ratio 10.00 % 01/09/17 09:30 Glucose 131 mg/dL (75-100) H 01/09/17 09:30 POC Glucose 106 (70-105) H 01/05/17 15:36 Lactic Acid 1.20 mmol/L (0.7-2.0) 01/05/17 17:57 Calcium 10.0 mg/dL (8.4-10.2) 01/09/17 09:30 Magnesium 2.00 mg/dL (1.7-2.3) 01/05/17 15:36 Total Bilirubin 0.40 mg/dL (0.1-1.2) 01/05/17 15:36 AST 51 units/L (5-40) H 01/05/17 15:36 ALT 75 units/L (7-56) H 01/05/17 15:36 Alkaline Phosphatase 80 units/L (35-129) 01/05/17 15:36 Ammonia 45.0 umol/L (25-60) 01/08/17 12:22 Total Protein 7.0 g/dL (6.3-8.2) 01/05/17 15:36 Albumin 3.8 g/dL (3.9-5) L 01/05/17 15:36 Albumin/Globulin Ratio 1.2 % 01/05/17 15:36 TSH 4.840 mlU/mL (0.270-4.200) H 01/06/17 11:24 Thyroxine (T4) 5.0 ug/dL (4.0-12.0) 01/05/17 23:15 Free T3 Index 3.2 pg/mL (2.3-4.2) 01/05/17 23:15 Urine Color Straw (Yellow) 01/05/17 15:27 Urine Turbidity Clear (Clear) 01/05/17 15:27 Urine pH 7.0 (5.0-7.0) 01/05/17 15:27 Ur Specific [place] 1.003 (1.003-1.030) 01/05/17 15:27 Urine Protein <15 mg/dl mg/dL (Negative) 01/05/17 15:27 Urine Glucose (UA) Neg mg/dL (Negative) 01/05/17 15:27 Urine Ketones Neg mg/dL (Negative) 01/05/17 15:27 Urine Blood Neg (Negative) 01/05/17 15:27 Urine Nitrite Neg (Negative) 01/05/17 15:27 Urine Bilirubin Neg (Negative) 01/05/17 15:27 Urine Urobilinogen < 2.0 mg/dL (<2.0) 01/05/17 15:27 Ur Leukocyte Esterase Neg (Negative) 01/05/17 15:27 Urine WBC (Auto) < 1.0 /HPF (0.0-6.0) 01/05/17 15:27 Urine RBC (Auto) 2.0 /HPF (0.0-6.0) 01/05/17 15:27 U Epithel Cells (Auto) < 1.0 /HPF (0-13.0) 01/05/17 15: Amorphous Crystals Few 01/05/17 15: Salicylates < 0.3 mg/dL (2.8-20.0) L 01/05/17 15:36 Urine Opiates Screen Presumptive negative 01/05/17 15:27 Urine Methadone Screen Presumptive negative 01/05/17 15:27 Acetaminophen < 15.0 ug/mL (10.0-30.0) 01/05/17 15:36 Ur Barbiturates Screen Presumptive negative 01/05/17 15:27 Valproic Acid 91.0 ug/mL (50-100) 01/06/17 11:24 Ur Phencyclidine Scrn Presumptive negative 01/05/17 15:27 Ur Amphetamines Screen Presumptive negative 01/05/17 15:27 U Benzodiazepines Scrn Presumptive negative 01/05/17 15:27 [place] 1.2 mmol/L (0.0-1.2) 01/06/17 11:24 Urine Cocaine Screen Presumptive negative 01/05/17 15:27 U Marijuana (THC) Screen Presumptive negative 01/05/17 15:27 Drugs of Abuse Note Disclamer 01/05/17 15:27 Plasma/Serum Alcohol < 0.01 gm% (0-0.07) 01/05/17 15:36
--- NOTE | 2017-01-09 14:36 | Consultation ---
History of Present Illness - Reason for Consult Consult date: 01/09/17 Medications and Allergies Allergies Allergy/AdvReac Type Severity Reaction Status Date / Time No Known Allergies Allergy Unverified 01/05/17 15:26 Home Medications Medication Instructions Recorded Confirmed Last Taken Type Ativan 2 mg PO TID 01/06/17 01/06/17 Unknown History Benztropine 2 mg PO BID 01/06/17 01/06/17 Unknown History Depakote 500 mg PO TID 01/06/17 01/06/17 Unknown History Likely 300 mg PO QID 01/06/17 01/06/17 Unknown History Propranolol 120 mg PO DAILY 01/06/17 01/06/17 Unknown History RisperiDONE 1 mg PO BID 01/06/17 01/06/17 Unknown History Triamcinolone 0.1% 1 applic TP BID 01/06/17 01/06/17 Unknown History traZODone 100 mg PO HS 01/06/17 01/06/17 Unknown History Active Meds: Active Medications Divalproex Sodium (Depakote ) 1,500 mg PO ONCE ONE Stop: 01/09/17 14:31 Divalproex Sodium (Depakote Dr) 500 mg PO QAM YINKA Divalproex Sodium (Depakote ) 1,000 mg PO HS [facility] Enoxaparin Sodium (Lovenox) 40 mg SUB-Q QDAY [facility] Last Admin: 01/09/17 10:04 Dose: 40 mg Haloperidol Lactate (Haldol) 2 mg IM Q4H PRN PRN Reason: Agitation Last Admin: 01/08/17 13:51 Dose: 2 mg Lorazepam (Ativan) 1 mg IV Q6H PRN PRN Reason: Agitation Last Admin: 01/09/17 10:02 Dose: 1 mg Ondansetron HCl (Zofran) 4 mg IV Q8H PRN PRN Reason: N/V unrelieved by [facility] Mental Status Exam - Vital signs Last Vital Signs Temp 98.5 F 01/09/17 08:14 Pulse 92 H 01/09/17 08:14 Resp 20 01/09/17 08:14 BP 125/66 01/09/17 08:14 Pulse Ox 97 01/09/17 08:14 Results Result Diagrams: 01/09/17 09:30 01/09/17 09:30 Abnormal lab results 01/09/17 01/09/17 Range/Units 09:30 09:30 RDW 15.9 H (13.2-15.2) % [place] % (Auto) 8.6 H (0.0-7.3) % Carbon Dioxide 19 L (22-30) mmol/L Glucose 131 H (75-100) mg/dL All other labs normal.
--- NOTE | 2017-01-09 14:57 | Progress Note ---
Subjective - Reason for Consult Consult date: 01/09/17 Reason for consult: psychiatric follow up Mental Status Exam - Vital signs Last Vital Signs Temp 98.5 F 01/09/17 08:14 Pulse 92 H 01/09/17 08:14 Resp 20 01/09/17 08:14 BP 125/66 01/09/17 08:14 Pulse Ox 97 01/09/17 08:14 Assessment and Plan This is a 21 year-old domiciled male has psychiatric history of autism and bipolar disorder now admitted for lithium toxicity. Barlow and Depakote were held due to elevated levels. Barlow level on admission was 1.3 and on recheck was 1.4. Depakote level was 104 and 91 on 01/06/17. Both lithium and Depakote levels were trending down throughout the hospital stay due to supportive care and discontinuation of the medication. He was reported to have had a seizure this am while eating. He has been lying in bed and incontinent since. Staff report he was out of bed running the halls last night and was using the bathroom when needed on his own. PSYCHIATRIC REVIEW OF SYSTEMS: Substance: unable to assess. Depression: unable to assess. Janey: unable to assess. Psychosis: unable to assess. Anxiety/ OCD/ PTSD:unable to assess. Suicidality: unable to assess. Other Self-Injurious Behavior: unable to assess. Violent/ Aggressive Behavior: unable to assess. Currently not on psychiatric medications MENTAL STATUS EXAM: General Appearance: In hospital gown in acute distress, obese, laughing, pulling the covers over his head Sensorium/Consciousness: alert Eye Contact: Fair Attitude / Behavior: cooperative, not agitated Psychomotor & Musculoskeletal Activity: lethargic Mood: unable to assess Affect: Appears euthymic Speech / Language: Nonverbal Thought Processes: Unable to assess Thought Content: unable to assess. Perception:unable to assess. Orientation: person Judgment What would you do if you smelled smoke in a crowded movie theater?: impaired Insight:impaired Intelligence Vocabulary, general fund of knowledge, educational level: limited Capacity of ADLs: dependent Impression: Autism Bipolar disorder Seizure like activity with incontinence and what appears to be a postictal state He is responding to internal stimuli and this is possibly related to epilepsy Recommendations: Last VPA level was 91 on 01/06/17. Seizure like activity indicates depakote may been used for mood and seizures. Resume depakote at 1500mg loading dose and 500mg starting 01/10/17 am and 1000mg hs starting 01/10/17.
[2017-01-10 06:59] LABS: Basophils % (Auto) 0.7 % (0.0-1.8); Eosinophils % (Auto) 1.4 % (0.0-4.3); Hematocrit 41.3 % (35.5-45.6); Hemoglobin 13.9 gm/dl (11.8-15.2); Mean Corpuscular HGB Conc 34 % (32-34); Mean Corpuscular Hemoglobin 29 pg (28-32); Mean Corpuscular Volume 86 fl (84-94); Red Blood Count 4.82 M/mm3 (3.65-5.03); Red Cell Distribution Width 15.9 % (13.2-15.2); White Blood Count 11.3 K/mm3 (4.5-11.0)
[2017-01-10 07:07] LABS: Platelet Count 202 K/mm3 (140-440)
[2017-01-10 07:08] LABS: BUN/Creatinine Ratio 14.44; Blood Urea Nitrogen 13 mg/dL (9-20); Calcium 9.5 mg/dL (8.4-10.2); Carbon Dioxide 18 mmol/L (22-30); Chloride 107.1 mmol/L (98-107); Glucose 96 mg/dL (75-100); Sodium 142 mmol/L (137-145)
[2017-01-10 08:00] LABS: Anion Gap 22 mmol/L; Potassium 5.5 mmol/L (3.6-5.0)
--- NOTE | 2017-01-10 09:58 | Progress Note ---
Assessment and Plan Assessment and plan: Seizure disorder. I discuss medication adjustments with psychiatry. Previous Depakote dose was resumed yesterday. However, patient still with seizure activity this morning. Add Keppra 500 mg IV twice a day. Check EEG. Consult neurology. Seizure precautions. Acute encephalopathy. Etiology most likely secondary to sedatives. Ammonia level was previously elevated but now the level is normal. Continue to monitor off medication. Psychiatry feels that once dosing information is obtained or confirmed with his fpc, a rechallenge of his mood stabilizers can be conducted. Elevated lithium and depakote levels. Resolved. Autism. Supportive care. Bipolar. Continue medications per psychiatry. History Interval history: Patient with a seizure again this morning which totals two consecutive mornings with seizure activities. Hospitalist Physical - Constitutional Vitals: Temp Pulse Resp BP Pulse Ox 98.4 F 96 H 20 126/71 98 01/10/17 08:00 01/10/17 08:00 01/10/17 08:00 01/10/17 08:00 01/10/17 08:00 General appearance: Present: no acute distress, obese - EENT Eyes: Present: PERRL, EOM intact ENT: hearing intact, clear oral mucosa, dentition normal - Neck Neck: Present: supple, normal ROM - Respiratory Respiratory effort: normal Respiratory: bilateral: CTA - Cardiovascular Rhythm: regular Heart Sounds: Present: S1 & S2. Absent: gallop, rub - Extremities Extremities: no ischemia, No edema, Full ROM - Abdominal General gastrointestinal: soft, non-tender, non-distended, normal bowel sounds - Integumentary Integumentary: Present: clear, warm, dry - Neurologic Neurologic: CNII-XII intact, moves all extremities Results - Labs CBC & Chem 7: 01/10/17 06:07 01/10/17 06:07 Labs: Laboratory Last Values WBC 11.3 K/mm3 (4.5-11.0) H 01/10/17 06:07 RBC 4.82 M/mm3 (3.65-5.03) 01/10/17 06:07 Hgb 13.9 gm/dl (11.8-15.2) 01/10/17 06:07 Hct 41.3 % (35.5-45.6) 01/10/17 06:07 MCV 86 fl (84-94) 01/10/17 06:07 MCH 29 pg (28-32) 01/10/17 06:07 MCHC 34 % (32-34) 01/10/17 06:07 RDW 15.9 % (13.2-15.2) H 01/10/17 06:07 Plt Count 202 K/mm3 (140-440) 01/10/17 06:07 Lymph % (Auto) 30.4 % (13.4-35.0) 01/10/17 06:07 [place] % (Auto) 7.8 % (0.0-7.3) H 01/10/17 06:07 Eos % (Auto) 1.4 % (0.0-4.3) 01/10/17 06:07 Baso % (Auto) 0.7 % (0.0-1.8) 01/10/17 06:07 Lymph # 3.4 K/mm3 (1.2-5.4) 01/10/17 06:07 [place] # 0.9 K/mm3 (0.0-0.8) H 01/10/17 06:07 Eos # 0.2 K/mm3 (0.0-0.4) 01/10/17 06:07 Baso # 0.1 K/mm3 (0.0-0.1) 01/10/17 06:07 Seg Neutrophils % 59.7 % (40.0-70.0) 01/10/17 06:07 Seg Neutrophils # 6.7 K/mm3 (1.8-7.7) 01/10/17 06:07 Sodium 142 mmol/L (137-145) 01/10/17 06:07 Potassium 5.5 mmol/L (3.6-5.0) H D 01/10/17 06:07 Chloride 107.1 mmol/L (98-107) H 01/10/17 06:07 Carbon Dioxide 18 mmol/L (22-30) L 01/10/17 06:07 Anion Gap 22 mmol/L 01/10/17 06:07 BUN 13 mg/dL (9-20) 01/10/17 06:07 Creatinine 0.9 mg/dL (0.8-1.5) 01/10/17 06:07 Estimated GFR > 60 ml/min 01/10/17 06:07 BUN/Creatinine Ratio 14.44 % 01/10/17 06:07 Glucose 96 mg/dL (75-100) 01/10/17 06:07 POC Glucose 106 (70-105) H 01/05/17 15:36 Lactic Acid 1.20 mmol/L (0.7-2.0) 01/05/17 17:57 Calcium 9.5 mg/dL (8.4-10.2) 01/10/17 06:07 Magnesium 2.00 mg/dL (1.7-2.3) 01/05/17 15:36 Total Bilirubin 0.40 mg/dL (0.1-1.2) 01/05/17 15:36 AST 51 units/L (5-40) H 01/05/17 15:36 ALT 75 units/L (7-56) H 01/05/17 15:36 Alkaline Phosphatase 80 units/L (35-129) 01/05/17 15:36 Ammonia 45.0 umol/L (25-60) 01/08/17 12:22 Total Protein 7.0 g/dL (6.3-8.2) 01/05/17 15:36 Albumin 3.8 g/dL (3.9-5) L 01/05/17 15:36 Albumin/Globulin Ratio 1.2 % 01/05/17 15:36 TSH 4.840 mlU/mL (0.270-4.200) H 01/06/17 11:24 Thyroxine (T4) 5.0 ug/dL (4.0-12.0) 01/05/17 23:15 Free T3 Index 3.2 pg/mL (2.3-4.2) 01/05/17 23:15 Urine Color Straw (Yellow) 01/05/17 15:27 Urine Turbidity Clear (Clear) 01/05/17 15:27 Urine pH 7.0 (5.0-7.0) 01/05/17 15:27 Ur Specific [place] 1.003 (1.003-1.030) 01/05/17 15:27 Urine Protein <15 mg/dl mg/dL (Negative) 01/05/17 15:27 Urine Glucose (UA) Neg mg/dL (Negative) 01/05/17 15:27 Urine Ketones Neg mg/dL (Negative) 01/05/17 15:27 Urine Blood Neg (Negative) 01/05/17 15:27 Urine Nitrite Neg (Negative) 01/05/17 15:27 Urine Bilirubin Neg (Negative) 01/05/17 15:27 Urine Urobilinogen < 2.0 mg/dL (<2.0) 01/05/17 15:27 Ur Leukocyte Esterase Neg (Negative) 01/05/17 15:27 Urine WBC (Auto) < 1.0 /HPF (0.0-6.0) 01/05/17 15:27 Urine RBC (Auto) 2.0 /HPF (0.0-6.0) 01/05/17 15:27 U Epithel Cells (Auto) < 1.0 /HPF (0-13.0) 01/05/17 15:27 Amorphous Crystals Few 01/05/17 15:27 Salicylates < 0.3 mg/dL (2.8-20.0) L 01/05/17 15:36 Urine Opiates Screen Presumptive negative 01/05/17 15:27 Urine Methadone Screen Presumptive negative 01/05/17 15:27 Acetaminophen < 15.0 ug/mL (10.0-30.0) 01/05/17 15:36 Ur Barbiturates Screen Presumptive negative 01/05/17 15:27 Valproic Acid 91.0 ug/mL (50-100) 01/06/17 11:24 Ur Phencyclidine Scrn Presumptive negative 01/05/17 15:27 Ur Amphetamines Screen Presumptive negative 01/05/17 15:27 U Benzodiazepines Scrn Presumptive negative 01/05/17 15:27 [place] 1.2 mmol/L (0.0-1.2) 01/06/17 11:24 Urine Cocaine Screen Presumptive negative 01/05/17 15:27 U Marijuana (THC) Screen Presumptive negative 01/05/17 15:27 Drugs of Abuse Note Disclamer 01/05/17 15:27 Plasma/Serum Alcohol < 0.01 gm% (0-0.07) 01/05/17 15:36
[2017-01-10] MEDS: LOVENOX SUB-Q SCH (10:00)
[2017-01-10] MEDS ORDERED: D5W IV SCH (11:00)
[2017-01-10] MEDS ORDERED: KEPPRA IV SCH (11:00)
[2017-01-10] MEDS: ATIVAN IV PRN ×2 (11:15→23:14)
--- NOTE | 2017-01-10 12:14 | Consultation ---
History of Present Illness Consult date: 01/10/17 Requesting physician: JOE CARTER Reason for Consult: seizure Chief complaint: AMS limits direct hx History of present illness: 21 YO M Hx Autism alf resident w/ Bipolar I and unclear if any seizure disorder brought to hospital to ED 01/05 for ams. long-term reported he has been progressively more sedate. He is on numerous psych meds bc of his behavioral issues. According to notes he is normally aggressive and can be hard to manage. He was found to have elevated NH4, Li level and VPA level. On 01/09 and 01/10 nursing have noted ? GTC w/ LOC. He has been poorly responsive but ? d/ t post ictal state vs. baseline. There were no clear aggravating, relieving or temporal factors. severity such to cause LOC Past History Past Medical History: other (Autums, BipolarI) Past Surgical History: Other (AMS limits direct hx) Social history: other (alf resident) Family history: other (AMS limits direct hx) Medications and Allergies Allergies Allergy/AdvReac Type Severity Reaction Status Date / Time No Known Allergies Allergy Unverified 01/05/17 15:26 Home Medications Medication Instructions Recorded Confirmed Last Taken Type Ativan 2 mg PO TID 01/06/17 01/06/17 Unknown History Benztropine 2 mg PO BID 01/06/17 01/06/17 Unknown History Depakote 500 mg PO TID 01/06/17 01/06/17 Unknown History [place] 300 mg PO QID 01/06/17 01/06/17 Unknown History Propranolol 120 mg PO DAILY 01/06/17 01/06/17 Unknown History RisperiDONE 1 mg PO BID 01/06/17 01/06/17 Unknown History Triamcinolone 0.1% 1 applic TP BID 01/06/17 01/06/17 Unknown History traZODone 100 mg PO HS 01/06/17 01/06/17 Unknown History Active Meds: Active Medications Divalproex Sodium (Depakote Dr) 500 mg PO QAM [facility] Last Admin: 01/10/17 11:00 Dose: 500 mg Divalproex Sodium (Depakote Dr) 1,000 mg PO HS [facility] Enoxaparin Sodium (Lovenox) 40 mg SUB-Q QDAY [facility] Last Admin: 01/10/17 10:00 Dose: Not Given Haloperidol Lactate (Haldol) 2 mg IM Q4H PRN PRN Reason: Agitation Last Admin: 01/08/17 13:51 Dose: 2 mg Levetiracetam 500 mg/ Dextrose 105 mls @ 400 mls/hr IV Q12HR YINKA Lorazepam (Ativan) 1 mg IV Q6H PRN PRN Reason: Agitation Last Admin: 01/10/17 11:15 Dose: 1 mg Ondansetron HCl (Zofran) 4 mg IV Q8H PRN PRN Reason: N/V unrelieved by Reglan Review of Systems ROS unobtainable: due to mental status Physical Examination - Vital Signs Vital Signs: Vital Signs Temp Pulse Resp BP Pulse Ox 97.8 F 79 18 146/76 100 01/05/17 15:18 01/05/17 15:18 01/05/17 15:18 01/05/17 15:18 01/05/17 15:18 - Constitutional General appearance: comfortable - EENT EENT: Present: ATNC, PERRL, mucous membranes moist, hearing intact, vision intact - Respiratory Respiratory: Present: chest non-tender, normal breath sounds, no respiratory distress - Cardiovascular Cardiovascular: Present: regular rate Extremities: Present: no peripheral edema bilatateraly, no clubbing, cyanosis, no inflammation, no ischemia or petechiae - Gastrointestinal Gastrointestinal: Present: normoactive bowel sounds, soft, non-distended - Integumentary Integumentary: Present: normal - Neurologic Cranial nerve examination: PERRL, EOMI, VFF, V1/V2/V3 grossly intact, face symmetric, tongue midline, intact, Intact Vestibulo-ocular r, intact corneal reflex, normal palatal elevation Speech examination: other (paucity of speech no clear words) Sensorimotor examination: intact Detailed motor examination: grossly full strength in Motor examination - right side: 4/5: biceps, triceps, wrist flexion, wrist extension, warm in worker, hip flexors, knee extensors, dorsiflexion, toe extension (EHL) , plantarflexion Motor examination - left side: 4/5: biceps, triceps, wrist flexion, wrist extension, warm in worker, hip flexors, knee extensors, dorsiflexion, toe extension (EHL) , plantarflexion Detailed sensory examination: intact, pain Reflex and gait examination: intact Reflexes: 2+: ankle, bicep, knee, tricep - Musculoskeletal Musculoskeletal: Present: no fluid collection, no pain, normal range of motion - Psychiatric Psychiatric: Present: other (withdrawn) Results - Laboratory Findings CBC and BMP: 01/10/17 06:07 01/10/17 06:07 Abnormal Lab Findings: Abnormal Labs 01/06/17 01/07/17 01/07/17 11:24 05:00 05:00 WBC RDW 15.8 H Lymph % (Auto) 35.6 H [place] % (Auto) 9.9 H Eos % (Auto) 6.5 H [place] # 1.0 H Eos # 0.7 H Sodium Potassium Chloride 109.6 H Carbon Dioxide BUN 5 L Glucose Ammonia TSH 4.840 H 01/07/17 01/08/17 01/08/17 15:04 06:17 06:17 WBC RDW 15.7 H Lymph % (Auto) [place] % (Auto) 10.8 H Eos % (Auto) [place] # 1.0 H Eos # Sodium 146 H Potassium Chloride 110.0 H Carbon Dioxide BUN 8 L Glucose Ammonia 66.0 H TSH 01/09/17 01/09/17 01/10/17 09:30 09:30 06:07 WBC 11.3 H RDW 15.9 H 15.9 H Lymph % (Auto) [place] % (Auto) 8.6 H 7.8 H Eos % (Auto) [place] # 0.9 H Eos # Sodium Potassium Chloride Carbon Dioxide 19 L BUN Glucose 131 H Ammonia TSH 01/10/17 06:07 WBC RDW Lymph % (Auto) [place] % (Auto) Eos % (Auto) [place] # Eos # Sodium Potassium 5.5 H D Chloride 107.1 H Carbon Dioxide 18 L BUN Glucose Ammonia TSH Assessment and Plan 21 YO M Hx Autism alf resident w/ Bipolar I and unclear if any seizure disorder brought to hospital to ED 01/05 for progressive AMS in setting of home meds including Ativan 2 TID, Benztropine 2mg BID, Risperdal 1 BID and elevated Li (1.4), VPA (104.8) & NH4 (66) levels. Pt's baseline is normally aggressive and can be hard to manage per notes. On 01/09 and 01/10 nursing have noted ? GTC w / LOC. Exam is nonfocal eyes open, alert, attends to examiner, pantomimes but does not follows commands, no verbalizations beyond mumbles but localizes pain throughout. P juliana and Recommendation: 1. Telemetry bed w/ Q4 hour neuro checks & Sz precautions 2. Brain imaging: MRI Brain +/- [place] Seizure Protocol 3. Routine awake and drowsy EEG 4. Labs: Serum/Urine Tox, UA/UCx, Electrolytes especially Na, Ca, Mg, and Glucose, TSH/Vit B12/Ammonia and correct as necessary 5. Cont Infectious work up/medical management for UTI, PNA, cellulitis, bacteremia, etc. 6. Avoid hyponatremia, hypo/hyper-calcemia, hypo/hyperglycemia, acidosis, hypoxia/hypoxemia, hypercarbia/hypercapnia 7. Avoid institution of any new psychoactive medications (e.g. antihistamines, anticholinergics, BZD, hypnotics, opiates) as able unless low doses of low potency antipsychotic needed for behavioral issues complicating medical care 8. AED therapy: Continue Keppra 1000mg BID, Ativan 2mg TID and VPA 500-1000 as previously Rx. 9. Avoid meds that can lower sz threshold e.g. Tramadol, fluroquinolones, carbapenems 10. If Hx obtained to suggest EtOH dependence, supplement Thiamine, Folate and cont CIWA Protocol 11. Pt advised of [place] driving regulations: report date of presumed Seizure/ unexplained loss of consciousness/awareness spell to [facility], refrain from operating a motor vehicle for 6 months after this date, and avoid unsupervised activity particularly around water or heights 12. Neurologically clear for discharge once resolved fully to baseline w/o recurrent seizure for 24 hrs if above testing neg. 13. Follow up as outpt with Neurology
--- NOTE | 2017-01-10 12:40 | Progress Note ---
Subjective - Reason for Consult Reason for consult: AMS, epilepsy Mental Status Exam - Vital signs Last Vital Signs Temp 98.4 F 01/10/17 08:00 Pulse 96 H 01/10/17 08:00 Resp 20 01/10/17 08:00 BP 126/71 01/10/17 08:00 Pulse Ox 98 01/10/17 08:00 Assessment and Plan Patient remains nonverbal. On clinical examination, patient was not in any acute distress. No acute events were noted overnight. MENTAL STATUS EXAM: General Appearance: In hospital gown in acute distress, obese Sensorium/Consciousness: alert and responding to external stimuli Eye Contact: Fair Attitude / Behavior: cooperative, not agitated Psychomotor & Musculoskeletal Activity: WNL Mood: Could not report Affect: Appears euthymic Speech / Language: Nonverbal Thought Processes: Unable to assess Thought Content: unable to assess. Perception:unable to assess. Orientation: person Judgment What would you do if you smelled smoke in a crowded movie theater?: limited Insight: limited Intelligence Vocabulary, general fund of knowledge, educational level: limited Capacity of ADLs: Somewhat dependent INITIAL PLAN OF CARE AND TREATMENT GOALS: Continue continue Depakote and Keppra has AEDs Obtain Depakote level and repeat LFTs when appropriate Defer re-challenging with lithium to the outpatient provider No further recommendations at this time
[2017-01-10] MEDS: KEPPRA 500 MG in D5W 100 ML IV SCH ×2 (18:28→23:15)
[2017-01-11] MEDS: ATIVAN IV PRN (09:29)
[2017-01-11] MEDS: LOVENOX SUB-Q SCH (09:35)
[2017-01-11] MEDS: KEPPRA 500 MG in D5W 100 ML IV SCH (10:11)
--- NOTE | 2017-01-11 10:51 | Progress Note ---
Assessment and Plan Assessment and plan: Seizure disorder. Continue Keppra 1000 mg twice a day, Ativan 2 mg 3 times a day and VPA 500-1000 per neurology. Follow-up MRI brain and EEG. Acute encephalopathy. Etiology may be secondary to previous medications and postictal state. Continue per neurology/psychiatry recommendations. Elevated lithium and depakote levels. Resolved. Autism. Supportive care. Bipolar. Continue medications per psychiatry. History Interval history: No reports of no seizure activity. Hospitalist Physical - Constitutional Vitals: Temp Pulse Resp BP Pulse Ox 99.0 F 94 H 18 116/59 100 01/11/17 04:35 01/11/17 04:35 01/11/17 04:35 01/11/17 04:35 01/11/17 04:35 General appearance: Present: no acute distress, obese - EENT Eyes: Present: PERRL, EOM intact ENT: hearing intact, clear oral mucosa, dentition normal - Neck Neck: Present: supple, normal ROM - Respiratory Respiratory effort: normal Respiratory: bilateral: CTA - Cardiovascular Rhythm: regular Heart Sounds: Present: S1 & S2. Absent: gallop, rub - Extremities Extremities: no ischemia, No edema, Full ROM - Abdominal General gastrointestinal: soft, non-tender, non-distended, normal bowel sounds - Integumentary Integumentary: Present: clear, warm, dry - Neurologic Neurologic: CNII-XII intact, moves all extremities Results - Labs CBC & Chem 7: 01/10/17 06:07 01/10/17 06:07 Labs: Laboratory Last Values WBC 11.3 K/mm3 (4.5-11.0) H 01/10/17 06:07 RBC 4.82 M/mm3 (3.65-5.03) 01/10/17 06:07 Hgb 13.9 gm/dl (11.8-15.2) 01/10/17 06:07 Hct 41.3 % (35.5-45.6) 01/10/17 06:07 MCV 86 fl (84-94) 01/10/17 06:07 MCH 29 pg (28-32) 01/10/17 06:07 MCHC 34 % (32-34) 01/10/17 06:07 RDW 15.9 % (13.2-15.2) H 01/10/17 06:07 Plt Count 202 K/mm3 (140-440) 01/10/17 06:07 Lymph % (Auto) 30.4 % (13.4-35.0) 01/10/17 06:07 [place] % (Auto) 7.8 % (0.0-7.3) H 01/10/17 06:07 Eos % (Auto) 1.4 % (0.0-4.3) 01/10/17 06:07 Baso % (Auto) 0.7 % (0.0-1.8) 01/10/17 06:07 Lymph # 3.4 K/mm3 (1.2-5.4) 01/10/17 06:07 [place] # 0.9 K/mm3 (0.0-0.8) H 01/10/17 06:07 Eos # 0.2 K/mm3 (0.0-0.4) 01/10/17 06:07 Baso # 0.1 K/mm3 (0.0-0.1) 01/10/17 06:07 Seg Neutrophils % 59.7 % (40.0-70.0) 01/10/17 06:07 Seg Neutrophils # 6.7 K/mm3 (1.8-7.7) 01/10/17 06:07 Sodium 142 mmol/L (137-145) 01/10/17 06:07 Potassium 5.5 mmol/L (3.6-5.0) H D 01/10/17 06:07 Chloride 107.1 mmol/L (98-107) H 01/10/17 06:07 Carbon Dioxide 18 mmol/L (22-30) L 01/10/17 06:07 Anion Gap 22 mmol/L 01/10/17 06:07 BUN 13 mg/dL (9-20) 01/10/17 06:07 Creatinine 0.9 mg/dL (0.8-1.5) 01/10/17 06:07 Estimated GFR > 60 ml/min 01/10/17 06:07 BUN/Creatinine Ratio 14.44 % 01/10/17 06:07 Glucose 96 mg/dL (75-100) 01/10/17 06:07 POC Glucose 84 (70-105) 01/11/17 06:16 Lactic Acid 1.20 mmol/L (0.7-2.0) 01/05/17 17:57 Calcium 9.5 mg/dL (8.4-10.2) 01/10/17 06:07 Magnesium 2.00 mg/dL (1.7-2.3) 01/05/17 15:36 Total Bilirubin 0.40 mg/dL (0.1-1.2) 01/05/17 15:36 AST 51 units/L (5-40) H 01/05/17 15:36 ALT 75 units/L (7-56) H 01/05/17 15:36 Alkaline Phosphatase 80 units/L (35-129) 01/05/17 15:36 Ammonia 45.0 umol/L (25-60) 01/08/17 12:22 Total Protein 7.0 g/dL (6.3-8.2) 01/05/17 15:36 Albumin 3.8 g/dL (3.9-5) L 01/05/17 15:36 Albumin/Globulin Ratio 1.2 % 01/05/17 15:36 TSH 4.840 mlU/mL (0.270-4.200) H 01/06/17 11:24 Thyroxine (T4) 5.0 ug/dL (4.0-12.0) 01/05/17 23:15 Free T3 Index 3.2 pg/mL (2.3-4.2) 01/05/17 23:15 Urine Color Straw (Yellow) 01/05/17 15:27 Urine Turbidity Clear (Clear) 01/05/17 15:27 Urine pH 7.0 (5.0-7.0) 01/05/17 15:27 Ur Specific [place] 1.003 (1.003-1.030) 01/05/17 15:27 Urine Protein <15 mg/dl mg/dL (Negative) 01/05/17 15:27 Urine Glucose (UA) Neg mg/dL (Negative) 01/05/17 15:27 Urine Ketones Neg mg/dL (Negative) 01/05/17 15:27 Urine Blood Neg (Negative) 01/05/17 15:27 Urine Nitrite Neg (Negative) 01/05/17 15:27 Urine Bilirubin Neg (Negative) 01/05/17 15:27 Urine Urobilinogen < 2.0 mg/dL (<2.0) 01/05/17 15:27 Ur Leukocyte Esterase Neg (Negative) 01/05/17 15:27 Urine WBC (Auto) < 1.0 /HPF (0.0-6.0) 01/05/17 15:27 Urine RBC (Auto) 2.0 /HPF (0.0-6.0) 01/05/17 15:27 U Epithel Cells (Auto) < 1.0 /HPF (0-13.0) 01/05/17 15:27 Amorphous Crystals Few 01/05/17 15:27 Salicylates < 0.3 mg/dL (2.8-20.0) L 01/05/17 15:36 Urine Opiates Screen Presumptive negative 01/05/17 15:27 Urine Methadone Screen Presumptive negative 01/05/17 15:27 Acetaminophen < 15.0 ug/mL (10.0-30.0) 01/05/17 15:36 Ur Barbiturates Screen Presumptive negative 01/05/17 15:27 Valproic Acid 91.0 ug/mL (50-100) 01/06/17 11:24 Ur Phencyclidine Scrn Presumptive negative 01/05/17 15:27 Ur Amphetamines Screen Presumptive negative 01/05/17 15:27 U Benzodiazepines Scrn Presumptive negative 01/05/17 15:27 [place] 1.2 mmol/L (0.0-1.2) 01/06/17 11:24 Urine Cocaine Screen Presumptive negative 01/05/17 15:27 U Marijuana (THC) Screen Presumptive negative 01/05/17 15:27 Drugs of Abuse Note Disclamer 01/05/17 15:27 Plasma/Serum Alcohol < 0.01 gm% (0-0.07) 01/05/17 15:36
[2017-01-11 11:15] VITALS: BP 147/73
--- NOTE | 2017-01-11 11:16 | Progress Note ---
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 Pt's baseline is eyes open, ? rarely following basic commands, non verbal but symmetric motor sensory able to walk and feed himself but normally aggressive and can be hard to manage per notes. On 01/09 and 01/10 AM nursing have noted ? seizure-like activity description from nursing notes I tyler read verbatim to mother/adult care manager/group captain and they all explicitly these are his typical behavioral spells, not seizures. They all feel pt is back to baseline. P juliana and Recommendation: 1. Telemetry bed w/ Q4 hour neuro checks & Sz precautions 2. Brain imaging: MRI Brain +/- [place] Seizure Protocol: unable to do b/c of weight 3. D/C EEG 4. Labs: Serum/Urine Tox, UA/UCx, Electrolytes especially Na, Ca, Mg, and Glucose, TSH/Vit B12/Ammonia and correct as necessary 5. Cont Infectious work up/medical management for UTI, PNA, cellulitis, bacteremia, etc. 6. Avoid hyponatremia, hypo/hyper-calcemia, hypo/hyperglycemia, acidosis, hypoxia/hypoxemia, hypercarbia/hypercapnia 7. Avoid institution of any new psychoactive medications (e.g. antihistamines, anticholinergics, BZD, hypnotics, opiates) as able unless low doses of low potency antipsychotic needed for behavioral issues complicating medical care 8. AED therapy: Continue home Ativan 2mg TID and VPA 500-1000 as previously Rx. Taper Off Keppra: decr to 250mg BID x 1 days then OFF. 9. Avoid meds that can lower sz threshold e.g. Tramadol, fluroquinolones, carbapenems 10. If Hx obtained to suggest EtOH dependence, supplement Thiamine, Folate and cont CIWA Protocol 11. Neurologically clear for discharge Subjective Date of service: 01/11/17 Principal diagnosis: ? seizure vs. behavioral event Interval history: no recurrent events. back to baseline as described to mother and caregiver Objective - Vital Sign Vital Signs - 12hr 01/11/17 04:35 Temperature 99.0 F Pulse Rate 94 H Respiratory 18 Rate Blood Pressure 116/59 [Left] O2 Sat by Pulse 100 Oximetry - General Apperance Constitutional: comfortable - EENT EENT: ATNC, PERRL, mucous membranes moist, hearing intact, vision intact - Respiratory Respiratory: chest non-tender, normal breath sounds, no respiratory distress - Cardiovascular Cardiovascular: regular rate Extremities: no peripheral edema bilat, no clubbing, cyanosis, no inflammation, no ischemia or petechiae - Gastrointestinal Gastrointestinal: normoactive bowel sounds, soft, non-distended - Integumentary Integumentary: normal - Neurologic Cranial nerve examination: PERRL, EOMI, VFF, V1/V2/V3 grossly intact, face symmetric, intact, Intact Vestibulo-ocular r, intact corneal reflex Speech examination: other (no speech, not followign commands) Detailed motor examination: grossly full strength in Motor examination - right side: 4/5: biceps, triceps, wrist flexion, wrist extension, automation machine builder, hip flexors, knee extensors, dorsiflexion, toe extension (EHL) , plantarflexion Motor examination - left side: 4/5: biceps, triceps, wrist flexion, wrist extension, automation machine builder, hip flexors, knee extensors, dorsiflexion, toe extension (EHL) , plantarflexion Detailed sensory examination: intact, pain Reflex and gait examination: intact - Laboratory Findings CBC and BMP: 01/10/17 06:07 01/10/17 06:07 Abnormal Lab Findings: Abnormal Labs 01/06/17 01/07/17 01/07/17 11:24 05:00 05:00 WBC RDW 15.8 H Lymph % (Auto) 35.6 H [place] % (Auto) 9.9 H Eos % (Auto) 6.5 H [place] # 1.0 H Eos # 0.7 H Sodium Potassium Chlor[place] 109.6 H Carbon Dioxide BUN 5 L Glucose POC Glucose Ammonia TSH 4.840 H 01/07/17 01/08/17 01/08/17 15:04 06:17 06:17 WBC RDW 15.7 H Lymph % (Auto) [place] % (Auto) 10.8 H Eos % (Auto) [place] # 1.0 H Eos # Sodium 146 H Potassium Chloride 110.0 H Carbon Dioxide BUN 8 L Glucose POC Glucose Ammonia 66.0 H TSH 01/09/17 01/09/17 01/10/17 09:30 09:30 06:07 WBC 11.3 H RDW 15.9 H 15.9 H Lymph % (Auto) [place] % (Auto) 8.6 H 7.8 H Eos % (Auto) [place] # 0.9 H Eos # Sodium Potassium Chloride Carbon Dioxide 19 L BUN Glucose 131 H POC Glucose Ammonia TSH 01/10/17 01/10/17 06:07 15:40 WBC RDW Lymph % (Auto) [place] % (Auto) Eos % (Auto) [place] # Eos # Sodium Potassium 5.5 H D Chloride 107.1 H Carbon Dioxide 18 L BUN Glucose POC Glucose 108 H Ammonia TSH
--- NOTE | 2017-01-11 12:30 | Discharge Summary ---
Providers - Providers Date of Admission: 01/06/17 02:23 Date of discharge: 01/11/17 Attending physician: JOE CARTER 01/06/17 10:34 Consult to Mental Health [CONS] Routine Reason For Exam: med adjustments Place consult to:: Mental Health Notified:: Jul-answering service Phone number called:: [phone] Was contact made?: Yes If yes, spoke with:: Rian-mental health Time called:: 10:55 01/10/17 09:46 Consult to Physician [CONS] Routine Consulting Provider: MOOK TANNER Reason For Exam: sz d/o Place consult to:: DR. TANNER Notified:: DR. TANNER Phone number called:: [phone] Was contact made?: Yes If yes, spoke with:: LEFT MESSAGE ON DR. TANNER Time called:: 09:59 Comment:: LEFT MESSAGE ON DR. TANNER CELL Primary care physician: SENIOR ENGINEERING TEAM LEADER Hospitalization Reason for admission: sz, ams Condition: Stable Hospital course: Neurology reports further evaluation, hospital course and discussion with family. 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 Pt's baseline is eyes open, ? rarely following basic commands, non verbal but symmetric motor sensory able to walk and feed himself but normally aggressive and can be hard to manage per notes. On 01/09 and 01/10 AM nursing have noted ? seizure-like activity description from nursing notes I ahve read verbatim to mother/after school caregiver/program director group work and they all explicitly these are his typical behavioral spells, not seizures. They all feel pt is back to baseline. Patient's medications were initially adjusted but now switched back per the above neurology recommendations. As reported above, neurology feels the patient is back to his baseline. Therefore, patient will be discharged home. Dedicated discharge time 31 minutes. Disposition: - TO HOME OR SELFCARE Time spent for discharge: 31 - Discharge Diagnoses (1) Autism Status: Acute (2) Bipolar 1 disorder Status: Acute (3) [place] toxicity Status: Acute Qualifiers: Encounter type: E Injury intent: I Core Measure Documentation - Palliative Care Palliative Care/ Comfort Measures: Not Applicable - Core Measures Any of the following diagnoses?: none Exam - Constitutional Vitals: Temp Pulse Resp BP Pulse Ox 97.9 F 92 H 16 147/73 99 01/11/17 08:00 01/11/17 08:00 01/11/17 08:00 01/11/17 08:00 01/11/17 08:00 General appearance: Present: no acute distress, well-nourished - EENT Eyes: Present: PERRL ENT: hearing intact, clear oral mucosa - Neck Neck: Present: supple, normal ROM - Respiratory Respiratory effort: normal Respiratory: bilateral: CTA - Cardiovascular Heart Sounds: Present: S1 & S2. Absent: rub, click - Extremities Extremities: pulses symmetrical, No edema Peripheral Pulses: within normal limits - Abdominal General gastrointestinal: Present: soft, non-tender, non-distended, normal bowel sounds Male genitourinary: Present: normal - Integumentary Integumentary: Present: clear, warm, dry - Musculoskeletal Musculoskeletal: gait normal, strength equal bilaterally - Psychiatric Psychiatric: appropriate mood/affect, intact judgment & insight - Neurologic Neurologic: CNII-XII intact, moves all extremities Plan Activity: no restrictions Weight Bearing Status: Weight Bear as Tolerated Follow up with: PRIMARY CARE, [Primary Care Provider] - 7 Days Prescriptions: levETIRAcetam [Keppra TAB] 250 mg PO BID #4 tablet
== END 2017-01-11 14:15 | disposition home or self-care (01) | DRG 71 ==
LOC: EEVIPCON 14:34 → ED 14:34 → 4A 01-06 02:23 → 3A 01-08 11:50
PROVIDERS: ADMIT Internal Medicine; ATTEND Hospitalist
DX: G93.40 Encephalopathy, unspecified (principal); F84.0 Autistic disorder; F31.9 Bipolar disorder, unspecified; G40.909 Epilepsy, unspecified, not intractable, without status epilepticus; T42.75XA Adverse effect of unspecified antiepileptic and sedative-hypnotic drugs, initial encounter; Y92.89 Other specified places as the place of occurrence of the external cause
CPT/HCPCS: 36415; 70450; 71020; 80048; 80053; 80164; 80178; 80307; 80320; 81001; 82140; 82962; 83735; 84436; 84443; 84481; 85025; 93005; 93010; G0480; J1630; J1650; J1953; J2060; J7030

== ENCOUNTER 2017-08-22 16:58 | Emergency (ER) | payer MEDICAID ==
[2017-08-22 17:17] VITALS: BP 157/87
--- NOTE | 2017-08-22 17:33 | Emergency Department Report ---
- General Chief Complaint: Upper Respiratory Infection Stated Complaint: COUGH Time Seen by Provider: 08/22/17 17:29 Source: family Mode of arrival: Ambulatory Limitations: Altered Mental Status - History of Present Illness Initial Comments: 22-year-old male with history of autism, bipolar affective disorder presents with fever and cough from [facility]. He also has decreased appetite. Caregiver's concern for persistent cough. Patient is nonverbal. He is unable to give verbal history but he is cooperative. MD Complaint: fever, cough - Related Data Home Medications Medication Instructions Recorded Confirmed Last Taken Ativan 2 mg PO TID 01/06/17 01/06/17 Unknown Benztropine 2 mg PO BID 01/06/17 01/06/17 Unknown Depakote 500 mg PO TID 01/06/17 01/06/17 Unknown [place] 300 mg PO QID 01/06/17 01/06/17 Unknown Propranolol 120 mg PO DAILY 01/06/17 01/06/17 Unknown RisperiDONE 1 mg PO BID 01/06/17 01/06/17 Unknown Triamcinolone 0.1% 1 applic TP BID 01/06/17 01/06/17 Unknown traZODone 100 mg PO HS 01/06/17 01/06/17 Unknown Previous Rx's Medication Instructions Recorded Last Taken Type levETIRAcetam [Keppra TAB] 250 mg PO BID #4 tablet 01/11/17 Unknown Rx Allergies Allergy/AdvReac Type Severity Reaction Status Date / Time No Known Allergies Allergy Unverified 01/05/17 15:26 ED Review of Systems ROS: Stated complaint: COUGH Other details as noted in HPI Comment: Unobtainable due to pts medical conditions ED Past Medical Hx - Past Medical History Previous Medical History?: Yes Hx Hypertension: No Hx CVA: No Hx Heart Attack/AMI: No Hx Congestive Heart Failure: No Hx Diabetes: No Hx Deep Vein Thrombosis: No Hx Pulmonary Embolism: No Hx GERD: No Hx Liver Disease: No Hx Renal Disease: No Hx Sickle Cell Disease: No Hx Arthritis: No Hx Headaches / Migraines: No Hx Seizures: No Hx Kidney Stones: No Hx Psychiatric Treatment: Yes Hx Asthma: No Hx COPD: No Hx Tuberculosis: No Hx Dementia: No Hx HIV: No Additional medical history: mute. autistic. bipolar. behavioral distrubance. obese. lives in [place]; mom and dad are alive - Surgical History Past Surgical History?: Yes Additional Surgical History: UNKNOWN - Social History Smoking Status: Never Smoker Substance Use Type: None - Medications Home Medications: Home Medications Medication Instructions Recorded Confirmed Last Taken Type Ativan 2 mg PO TID 01/06/17 01/06/17 Unknown History Benztropine 2 mg PO BID 01/06/17 01/06/17 Unknown History Depakote 500 mg PO TID 01/06/17 01/06/17 Unknown History [place] 300 mg PO QID 01/06/17 01/06/17 Unknown History Propranolol 120 mg PO DAILY 01/06/17 01/06/17 Unknown History RisperiDONE 1 mg PO BID 01/06/17 01/06/17 Unknown History Triamcinolone 0.1% 1 applic TP BID 01/06/17 01/06/17 Unknown History traZODone 100 mg PO HS 01/06/17 01/06/17 Unknown History levETIRAcetam [Keppra TAB] 250 mg PO BID #4 tablet 01/11/17 Unknown Rx ED Physical Exam - General Limitations: Altered Mental Status General appearance: alert, in no apparent distress - Head Head exam: Present: atraumatic, normocephalic - Eye Eye exam: Present: normal appearance - ENT ENT exam: Present: mucous membranes moist - Neck Neck exam: Present: normal inspection - Respiratory Respiratory exam: Present: normal lung sounds bilaterally. Absent: respiratory distress, wheezes, rales, rhonchi, stridor - Cardiovascular Cardiovascular Exam: Present: regular rate, normal rhythm, normal heart sounds. Absent: systolic murmur, diastolic murmur, rubs, gallop - GI/Abdominal GI/Abdominal exam: Present: soft, normal bowel sounds. Absent: distended, tenderness, guarding, rebound - Rectal Rectal exam: Present: deferred - Extremities Exam Extremities exam: Present: normal inspection - Back Exam Back exam: Present: normal inspection - Neurological Exam Neurological exam: Present: alert, other (nonverbal but cooperative) - Psychiatric Psychiatric exam: Present: flat affect - Skin Skin exam: Present: warm, dry, intact, normal color. Absent: rash ED Course Vital Signs 08/22/17 17:14 Temperature 98.2 F Pulse Rate 88 Respiratory 20 Rate Blood Pressure 157/87 O2 Sat by Pulse 96 Oximetry ED Medical Decision Making - Medical Decision Making Mr. Gonzalez presents with history of fever and cough. He appears well. Normal vital signs with slight hypertension. Recommended rest hydration. Caregiver requested cough medications. I recommended withholding cough medication. With his host of medications and history of autism, I am concerned that further medication could cause adverse medication interaction as well as increased agitation/ hyperactivity Critical care attestation.: If time is entered above; I have spent that time in minutes in the direct care of this critically ill patient, excluding procedure time. ED Disposition Clinical Impression: URI (upper respiratory infection) Disposition: DC- TO HOME OR SELFCARE Is pt being admited?: No Does the pt Need Aspirin: No Condition: Stable Instructions: Upper Respiratory Infection (ED) Time of Disposition: 17:33
== END 2017-08-22 17:38 | disposition home or self-care (01) ==
LOC: ED 16:58
DX: J06.9 Acute upper respiratory infection, unspecified (principal)